=== PATIENT | male | born 1960 | race Caucasian/White ===

== ENCOUNTER 2017-09-10 06:48 | Inpatient (IN) | payer OTHER ==
[2017-09-10] MEDS ORDERED: Albuterol/Ipratropium 3.0-0.5 MG/3 ML Neb Soln NEB ONE (06:58)
[2017-09-10] MEDS: Sodium Chloride 0.9% 10 ML Syringe FLUSH PRN ×2 (07:17→09:20)
--- NOTE | 2017-09-10 07:46 | CR ---
Chest: 2 views of the chest were obtained. Moderately large left-sided pneumothorax is seen. Mediastinum appears slightly shifted to the right side and this pneumothorax may be causing mild tension. Right lung is clear. Heart size is normal. Tortuous thoracic aorta is seen. Impression: 1. Moderately large left sided pneumothorax with possible tension. Diagnostic code #5
[2017-09-10] MEDS ORDERED: Lidocaine 1% with EPINEPHrine 1:100,000 20 ML MDV INJECT ONE (07:52)
[2017-09-10] MEDS ORDERED: Midazolam 1 MG/ML 2 ML SDV IVPUSH ONE (07:54)
[2017-09-10] MEDS ORDERED: fentaNYL 100 MCG/2 ML SDV IVPUSH ONE ×2 (07:54→08:20)
[2017-09-10] MEDS ORDERED: Lidocaine 1% with EPINEPHrine 1:100,000 20 ML MDV ONE (07:59)
[2017-09-10] MEDS ORDERED: fentaNYL 100 MCG/2 ML SDV ONE (08:28)
[2017-09-10] MEDS ORDERED: Sodium Chloride 0.9% 1,000 ML IV SCH (08:30)
[2017-09-10] MEDS ORDERED: Iopamidol 755 Mg/ML 100 ML Bottle IVPUSH ONE (08:45)
[2017-09-10] MEDS ORDERED: Sodium Chloride 0.9% 100 ML IV SCH (08:45)
[2017-09-10] MEDS ORDERED: Sodium Chloride 0.9% 10 ML Syringe FLUSH ONE (08:45)
--- NOTE | 2017-09-10 08:56 | EDM.PDOC ---
ED HPI GENERAL MEDICAL PROBLEM - General Chief Complaint: Respiratory Problem Stated Complaint: [facility] Time Seen by Provider: 09/10/17 06:53 Source of Information: Reports: Patient, EMS History Limitations: Reports: No Limitations - History of Present Illness INITIAL COMMENTS - FREE TEXT/NARRATIVE: The patient presents with left chest pain. He also has pain to his left upper back. He said he got up this morning and he was doing fine. He went to get some coffee and he developed left sided chest pain. The pain is also to both lower ribs. He feels short of breath. He has no fever or chills. He has a slight cough. He has no abdominal pain, nausea or vomiting. He smoked a pack of cigarettes per day. He has no health problems that he knows of. He does admit to not regularly seeing a doctor. He did see a [employer] director intelligence officer that removed some skin cancer from his right ear. He came in by [facility]. Onset: Sudden Duration: Minutes: Location: Reports: Chest Quality: Reports: Sharp Severity: Moderate Improves with: Reports: None Worsens with: Reports: Breathing Context: Reports: Activity (He was getting some coffee this morning) Associated Symptoms: Reports: Chest Pain, Cough, Shortness of Breath. Denies: cough w sputum, Fever/Chills, Headaches, Nausea/Vomiting Left Shoulder Pain Score (Numeric/FACES): 3 - Related Data Allergies Allergy/AdvReac Type Severity Reaction Status Date / Time No Known Allergies Allergy Verified 09/10/17 06:56 Home Meds: Home Meds . [No Known Home Meds] 09/10/17 [History] Past Medical History Other HEENT History: Wears glasses Dermatologic History: Reports: Melanoma - Past Surgical History Dermatological Surgical History: Reports: Skin Biopsy Social & Family History - Tobacco Use Smoking Status *Q: Current Every Day Smoker Years of Tobacco use: 40 Packs/Tins Daily: 1 - Recreational Drug Use Recreational Drug Use: No ED ROS GENERAL - Review of Systems Review Of Systems: See Below Constitutional: Reports: No Symptoms HEENT: Reports: No Symptoms Respiratory: Reports: Shortness of Breath, Cough Cardiovascular: Reports: Chest Pain Endocrine: Reports: No Symptoms : Reports: No Symptoms Musculoskeletal: Reports: Back Pain Neurological: Reports: No Symptoms ED EXAM, GENERAL - Physical Exam Exam: See Below Exam Limited By: No Limitations General Appearance: Alert, No Apparent Distress Ears: Normal External Exam Nose: Normal Inspection Head: Atraumatic, Normocephalic Neck: Normal Inspection Respiratory/Chest: No Respiratory Distress, Decreased Breath Sounds (On the left ), Wheezing (very mild) Cardiovascular: Regular Rate, Rhythm, No Edema, No Murmur GI/Abdominal: Soft, Non-Tender, No Organomegaly, No Mass Back Exam: Normal Inspection Extremities: Normal Inspection ED RESPIRATORY PROCEDURES - Chest Tube Insertion Chest Tube Location: Left Site: Anterior Axillary Line, Intercostal Space: Tube Size: 20Fr Skin Prep: CDC Guidelines Followed, Chlorhexidine Local Anesthesia - Lidocaine (Xylocaine): 1% with EPI Local Anesthetic Volume: 4cc Butts of Air [place]: Yes Number of Attempts: 1 Tube Sutured to Skin: Yes Post procedure tube position confirmed by: by CXR Tube Connected to Suction: Yes EKG INTERPRETATION EKG Date: 09/10/17 Time: 06:47 Rhythm: NSR Rate (Beats/Min): 88 Violet: Normal P-Wave: Present QRS: Normal ST-T: Normal QT: Normal Course - Vital Signs Last Recorded V/S: Last Vital Signs Temp 97.3 F 09/10/17 06:56 Pulse 91 09/10/17 06:56 Resp 18 09/10/17 06:56 BP 115/83 09/10/17 06:56 Pulse Ox 93 L 09/10/17 07:11 - Orders/Labs/Meds Orders: Active Orders 24 hr Category Date Time Status Cardiac Monitoring [RC] . DIRECTED Care 09/10/17 06:57 Active EKG Documentation Completion [RC] STAT Care 09/10/17 06:57 Active Oxygen Therapy [RC] PRN Care 09/10/17 06:57 Active Peripheral IV Care [RC] . DIRECTED Care 09/10/17 06:58 Active RT Aerosol Therapy [RC] ASDIRECTED Care 09/10/17 06:58 Active Sodium Chloride 0.9% [Normal Saline] 1,000 ml Med 09/10/17 08:30 Active IV ASDIRECTED Sodium Chloride 0.9% [Normal Saline] 100 ml Med 09/10/17 08:45 Active IV ASDIRECTED Sodium Chloride 0.9% [Saline Flush] Med 09/10/17 06:57 Active 10 ml FLUSH ASDIRECTED PRN Peripheral IV Insertion Adult [OM.PC] Stat Oth 09/10/17 06:57 Ordered Medication Orders Sodium Chloride (Normal Saline) 1,000 mls @ 150 mls/hr IV ASDIRECTED CALLUM Last Admin: 09/10/17 08:42 Dose: 150 mls/hr Sodium Chloride (Normal Saline) 100 mls @ 60 mls/hr IV ASDIRECTED CALLUM Last Admin: 09/10/17 09:20 Dose: 60 mls/hr Sodium Chloride (Saline Flush) 10 ml FLUSH ASDIRECTED PRN PRN Reason: Keep Vein Open Last Admin: 09/10/17 09:20 Dose: 10 ml Admin: 09/10/17 07:17 Dose: 10 ml Labs: Laboratory Tests 09/10/17 09/10/17 09/10/17 Range/Units 07:10 07:10 07:10 WBC 9.33 H (4.23-9.07) K/mm3 RBC 4.97 (4.63-6.08) M/mm3 Hgb 15.4 (13.7-17.5) gm/L Hct 45.5 (40.1-51.0) % MCV 91.5 (79.0-92.2) fl MCH 31.0 (25.7-32.2) pg MCHC 33.8 (32.2-35.5) g/dl RDW Std Deviation 45.1 H (35.1-43.9) fL Plt Count 197 (163-337) K/mm3 MPV 9.4 (9.4-12.3) fl Neut % (Auto) 82.7 H (34.0-67.9) % Lymph % (Auto) 9.5 L (21.8-53.1) % Christian % (Auto) 6.2 (5.3-12.2) % Eos % (Auto) 1.0 (0.8-7.0) Baso % (Auto) 0.3 (0.1-1.2) % Neut # (Auto) 7.71 H (1.78-5.38) K/mm3 Lymph # (Auto) 0.89 L (1.32-3.57) K/mm3 Christian # (Auto) 0.58 (0.30-0.82) K/mm3 Eos # (Auto) 0.09 (0.04-0.54) K/mm3 Baso # (Auto) 0.03 (0.01-0.08) K/mm3 Manual Slide Review Normal smear D-Dimer, Quantitative 0.99 H (0.19-0.59) mg/L Sodium 142 (136-145) mEq/L Potassium 4.2 (3.5-5.1) mEq/L Chloride 108 H (98-107) mEq/L Carbon Dioxide 26 (21-32) mEq/L Anion Gap 12.2 (5-15) BUN 23 H (7-18) mg/dL Creatinine 1.4 H (0.7-1.3) mg/dL Est Cr Clr Drug Dosing 61.56 mL/min Estimated GFR (MDRD) 53 (>60) mL/min BUN/Creatinine Ratio 16.4 (14-18) Glucose 92 (74-106) mg/dL Calcium 9.3 (8.5-10.1) mg/dL Total Bilirubin 0.4 (0.2-1.0) mg/dL AST 16 (15-37) U/L ALT 22 (16-63) U/L Alkaline Phosphatase 47 (46-116) U/L Troponin I < 0.017 (0.00-0.056) ng/mL Total Protein 6.9 (6.4-8.2) g/dl Albumin 3.6 (3.4-5.0) g/dl Globulin 3.3 gm/dL Albumin/Globulin Ratio 1.1 (1-2) Meds: Medications Generic Name Dose Route Start Last Admin Trade Name Freq PRN Reason Stop Dose Admin Sodium Chloride 1,000 mls @ 150 mls/hr 09/10/17 08:30 09/10/17 08:42 Normal Saline IV 150 mls/hr ASDIRECTED CALLUM Administration Sodium Chloride 100 mls @ 60 mls/hr 09/10/17 08:45 09/10/17 09:20 Normal Saline IV 60 mls/hr ASDIRECTED CALLUM Administration Sodium Chloride 10 ml 09/10/17 06:57 09/10/17 09:20 Saline Flush FLUSH 10 ml ASDIRECTED PRN Administration Keep Vein Open Discontinued Medications Generic Name Dose Route Start Last Admin Trade Name Freq PRN Reason Stop Dose Admin Albuterol/Ipratropium 3 ml 09/10/17 06:58 09/10/17 07:11 Duoneb 3.0-0.5 Mg/3 Ml NEB 09/10/17 06:59 3 ml ONETIME ONE Administration Diazepam 5 mg 09/10/17 08:25 09/10/17 08:43 Valium IVPUSH 09/10/17 08:26 5 mg ONETIME ONE Administration Fentanyl 100 mcg 09/10/17 07:54 09/10/17 08:01 Sublimaze IVPUSH 09/10/17 07:55 100 mcg ONETIME ONE Administration Fentanyl 100 mcg 09/10/17 08:20 09/10/17 08:24 Sublimaze IVPUSH 09/10/17 08:21 100 mcg ONETIME ONE Administration Fentanyl Confirm 09/10/17 08:28 09/10/17 08:46 Sublimaze Administered 09/10/17 08:29 Not Given Dose 100 mcg .ROUTE .STK-MED ONE Hydromorphone HCl Confirm 09/10/17 09:18 09/10/17 09:36 Dilaudid Administered 09/10/17 09:19 Not Given Dose 1 mg .ROUTE .STK-MED ONE Hydromorphone HCl 1 mg 09/10/17 09:26 09/10/17 09:15 Dilaudid IVPUSH 09/10/17 09:27 0.5 mg ONETIME ONE Administration Iopamidol 100 ml 09/10/17 08:45 09/10/17 09:20 Isovue-370 (76%) IVPUSH 09/10/17 08:46 80 ml ONETIME ONE Administration Lidocaine/Epinephrine 20 ml 09/10/17 07:52 09/10/17 08:13 Xylocaine 1% With Epinephrine 1:100,000 INJECT 09/10/17 07:53 20 ml ONETIME ONE Administration Lidocaine/Epinephrine Confirm 09/10/17 07:59 09/10/17 08:13 Xylocaine 1% With Epinephrine 1:100,000 Administered 09/10/17 08:00 Not Given Dose 20 ml .ROUTE .STK-MED ONE Midazolam HCl 2 mg 09/10/17 07:54 09/10/17 08:00 Versed 1 Mg/Ml IVPUSH 09/10/17 07:55 2 mg ONETIME ONE Administration Sodium Chloride 10 ml 09/10/17 08:45 09/10/17 09:34 Saline Flush FLUSH 09/10/17 08:46 10 ml ONETIME ONE Administration - Re-Assessments/Exams Free Text/Narrative Re-Assessment/Exam: 09/10/17 09:01 I ordered an IV saline lock, EKG, CXR and labs. The patient did not want any aspirin. His aoc director intelligence officer did not want him to take any. His WBC was elevated at 9.33. His D-dimer is elevated at 0.99. His BUN is elevated at 23. His creatinine is elevated at 1.4. His troponin is negative. His CXR shows moderately large left sided pneumothorax with possible tension. 09/10/17 09:05 I ordered fentanyl 100mcg IV and versed 2mg. I used lidocaine with epi to anaesthetize the site. I put in a 20 Welsh tube without difficulty. Tube positioning was confirmed with CXR. He had severe pain to the upper left chest and to his back after his chest tube. I gave him some more fentanyl 100mcg IV and some valium. The tube was up in the apex so I back it off slightly. That may have helped some. I have ordered a CT of his chest. His D-dimer was elevated. I talked to Dr Samyaoa and he accepted the patient. His oxygen saturations were low. I feel this is due to his not taking a deep breath and poor pleth. We will continue with the oxygen. 09/10/17 10:[address] shows prominent emphysematous bullae within both lungs, worse on the left side. Small left-sided pneumothrax is seen. Left-sided chest tube is in place. Focal density within the left lung base most likely representing atelectasis with pneumonia also possibility but slightly less likely please correlate. The patient does have a cough but no more then usual. I up-dated Dr Samayoa and I will do some bridging orders. 09/10/17 10:16 The patient is feeling much better. Departure - Departure Time of Disposition: 10:20 Disposition: Admitted As Inpatient 67 Condition: Fair Clinical Impression: Pneumothorax on left, Bleb, lung, Smoker Emphysema lung Qualifiers: Emphysema type: unspecified Qualified Code(s): J43.9 - Emphysema, unspecified - Discharge Information Referrals: PCP,None [Primary Care Provider] - Forms: ED Department Discharge - My Orders Last 24 Hours: My Active Orders 09/10/17 06:57 Cardiac Monitoring [RC] . DIRECTED EKG Documentation Completion [RC] STAT Oxygen Therapy [RC] PRN Sodium Chloride 0.9% [Saline Flush] 10 ml FLUSH ASDIRECTED PRN Peripheral IV Insertion Adult [OM.PC] Stat 09/10/17 06:58 Peripheral IV Care [RC] . DIRECTED RT Aerosol Therapy [RC] ASDIRECTED 09/10/17 08:30 Sodium Chloride 0.9% [Normal Saline] 1,000 ml IV ASDIRECTED 09/10/17 08:45 Sodium Chloride 0.9% [Normal Saline] 100 ml IV ASDIRECTED - Assessment/Plan Last 24 Hours: My Active Orders 09/10/17 06:57 Cardiac Monitoring [RC] . DIRECTED EKG Documentation Completion [RC] STAT Oxygen Therapy [RC] PRN Sodium Chloride 0.9% [Saline Flush] 10 ml FLUSH ASDIRECTED PRN Peripheral IV Insertion Adult [OM.PC] Stat 09/10/17 06:58 Peripheral IV Care [RC] . DIRECTED RT Aerosol Therapy [RC] ASDIRECTED 09/10/17 08:30 Sodium Chloride 0.9% [Normal Saline] 1,000 ml IV ASDIRECTED 09/10/17 08:45 Sodium Chloride 0.9% [Normal Saline] 100 ml IV ASDIRECTED
[2017-09-10] MEDS ORDERED: HYDROmorphone 1 MG/ML Syringe ONE (09:18)
[2017-09-10] MEDS ORDERED: HYDROmorphone 1 MG/ML Syringe IVPUSH ONE (09:26)
--- NOTE | 2017-09-10 09:40 | CR ---
Chest: Portable view of the chest was obtained. Comparison: Prior chest x-ray performed earlier on the same day (7:10 AM). Left-sided chest tube is now seen. Previous pneumothorax has been evacuated. Small amount of air is noted within the left chest wall secondary to the procedure. Parenchymal density is noted within the left lung base. Lungs otherwise are clear. Heart size at the upper limits of normal. Bony structures are grossly intact. Impression: 1. Left-sided chest tube. Previous pneumothorax has been evacuated. 2. Parenchymal density within the left base either due to prominent area of persisting atelectasis or an area of pneumonia. 3. Other incidental findings. Diagnostic code #3
--- NOTE | 2017-09-10 09:40 | CR ---
Chest: Portable view of the chest was obtained. Comparison: Prior chest x-ray performed earlier on the same day (8:15 AM). Left-sided chest tube is seen with small pneumothorax seen on current study. Small amount of air is seen within the left chest wall which is incidental. Decreasing parenchymal density within the left base now having the appearance of resolving atelectasis rather than pneumonia. Lungs otherwise are clear. Heart size at the upper limits of normal. Tortuous thoracic aorta is seen. Bony structures are grossly intact. Impression: 1. Stable appearing left-sided chest tube. Small pneumothorax is seen on current study. 2. Decreased area of atelectasis within the left base. Other incidental findings. Diagnostic code #3
--- NOTE | 2017-09-10 10:05 | CT ---
CT chest Technique: Multiple axial sections were obtained from above the lung apices inferiorly through the lung bases. Intravenous contrast was utilized. Study has been performed as a pulmonary angiogram protocol. Findings: Pulmonary arteries are well-opacified. No filling defects are seen to indicate pulmonary embolism. Moderate sized hiatal hernia is noted. Coronary artery calcification is noted. Atherosclerotic calcification is noted within the thoracic aorta. Mediastinum and hilar regions show no adenopathy or mass. Bullous change is identified within both lungs, worse on the left side. Emphysematous change is present. Small persisting pneumothorax is seen on the left side with left-sided chest tube in place. Increased density within the left lung base is seen. Findings most likely due to atelectasis with less likely etiology of pneumonia. Slight atelectasis seen posteriorly within the right lung base. Subcutaneous air within the left chest compatible with recent chest tube placement. Impression: 1. Prominent emphysematous bullae within both lungs, worse on the left side. 2. Small left-sided pneumothorax is seen. Left-sided chest tube is in place. 3. Focal density within the left lung base most likely representing atelectasis with pneumonia also possibility but slightly less likely, please correlate. 4. Other incidental findings as noted above. No findings of pulmonary embolism are seen. Diagnostic code #3
[2017-09-10] MEDS ORDERED: HYDROmorphone 0.5 MG/0.5 ML Syringe IVPUSH ONE (10:52)
[2017-09-10] MEDS: HYDROmorphone 0.5 MG/0.5 ML Syringe IVPUSH PRN ×5 (12:33→22:09)
[2017-09-10] MEDS: Pantoprazole 40 MG Tab.CR PO SCH (14:41)
--- NOTE | 2017-09-10 14:59 | PCM.HP ---
H&P History of Present Illness - General Date of Service: 09/10/17 Admit Problem/Dx: Admission Diagnosis/Problem Admission Diagnosis/Problem Pneumothorax on left Source of Information: Patient - History of Present Illness Initial Comments - Free Text/Narative: 56-year-old 1 pack per day smoker was in his usual state of health until this morning when he experienced the sudden onset of left-sided chest pain associated with shortness of breath and a cough. The pain was worse with deep inspiration. Because of this he presented to the emergency room for evaluation. He was hemodynamically stable but had low O2 saturations. His chest x-ray showed a complete collapse of the left lung with slight mediastinal shift along with emphysematous changes in both lungs. A chest tube was placed by the ED physician. A CT scan showed emphysematous bulla and some atelectatic changes. The patient had post procedure chest tube discomfort and after repositioning of the tube this helped with the discomfort. Left Shoulder Pain Score (Numeric/FACES): 3 - Related Data Allergies/Adverse Reactions: Allergies Allergy/AdvReac Type Severity Reaction Status Date / Time No Known Allergies Allergy Verified 09/10/17 06:56 Home Medications: Home Meds . [No Known Home Meds] 09/10/17 [History] Past Medical History Other HEENT History: Wears glasses Dermatologic History: Reports: Melanoma - Past Surgical History Dermatological Surgical History: Reports: Skin Biopsy Social & Family History - Tobacco Use Smoking Status *Q: Current Every Day Smoker Years of Tobacco use: 40 Packs/Tins Daily: 1 - Recreational Drug Use Recreational Drug Use: No H&P Review of Systems - Review of Systems: Review Of Systems: ROS reveals no pertinent complaints other than HPI. Exam - Exam Exam: See Below - Vital Signs Vital Signs: Last Vital Signs Temp 36.4 C 09/10/17 11:36 Pulse 84 09/10/17 11:36 Resp 16 09/10/17 11:36 BP 132/74 09/10/17 11:36 Pulse Ox 92 L 09/10/17 11:36 Weight: 83.915 kg - Exam Quality Assessment: Supplemental Oxygen General: Alert, Oriented, Cooperative, Mild Distress HEENT: EOMI, Hearing Intact Neck: Supple, Trachea Midline Lungs: Clear to Auscultation, Decreased Breath Sounds (Left chest) Cardiovascular: Regular Rate, Regular Rhythm, Normal S1, Normal S2 GI/Abdominal Exam: Normal Bowel Sounds, Soft, Non-Tender (Male) Exam: Deferred Rectal (Males) Exam: Deferred Skin: Warm, Dry, Intact - Patient Data Result Diagrams: 09/10/17 07:10 09/10/17 07:10 *Q Meaningful Use (ADM) - VTE *Q VTE Criteria *Q: - Stroke *Q Stroke Criteria *Q: - AMI *Q AMI Criteria *Q: - Problem List (1) Emphysema lung SNOMED Code(s): 48570602 ICD Code: J43.9 - EMPHYSEMA, UNSPECIFIED Status: Chronic Priority: Medium Current Visit: Yes Qualifiers: Emphysema type: unspecified Qualified Code(s): J43.9 - Emphysema, unspecified (2) Pneumothorax on left SNOMED Code(s): 128689016 ICD Code: J93.9 - PNEUMOTHORAX, UNSPECIFIED Status: Resolved Priority: High Current Visit: Yes Problem List Initiated/Reviewed/Updated: Yes Orders Last 24hrs: Active Orders 24 hr Category Date Time Status Bedrest [RC] ASDIRECTED Care 09/10/17 12:05 Active Regular Diet [DIET] Diet 09/10/17 Lunch Active HYDROmorphone [Dilaudid] Med 09/10/17 12:03 Active 0.5 mg IVPUSH Q1H PRN Pantoprazole [ProTONIX] Med 09/10/17 13:45 Active 40 mg PO ACBREAKFAST Resuscitation Status Routine Resus Stat 09/10/17 12:05 Ordered Medication Orders Hydromorphone HCl (Dilaudid) 0.5 mg IVPUSH Q1H PRN PRN Reason: Pain Last Admin: 09/10/17 14:38 Dose: 0.5 mg Admin: 09/10/17 12:33 Dose: 0.5 mg Pantoprazole Sodium (Protonix) 40 mg PO ACBREAKFAST CALLUM Last Admin: 09/10/17 14:41 Dose: 40 mg Sodium Chloride (Saline Flush) 10 ml FLUSH ASDIRECTED PRN PRN Reason: Keep Vein Open Last Admin: 09/10/17 09:20 Dose: 10 ml Admin: 09/10/17 07:17 Dose: 10 ml Assessment/Plan Comment:: imp/plan: Near complete lung reexpansion after placement of a left chest tube. 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 Hopefully this seals itself within the next few days. He' s currently on 20 cm of continuous water suction. He has some pain at the chest tube site. I will continue the suction and periodically obtain chest x-rays. I will switch his analgesics to nonsteroidals. Nicotine patch will be available when necessary.
[2017-09-10] MEDS ORDERED: Nicotine 21 MG/24 Hr Patch TRDERM PRN (15:09)
[2017-09-10] MEDS: Ibuprofen 400 MG Tab PO SCH ×2 (16:17→22:16)
[2017-09-10] MEDS: Ketorolac 15 MG/ML SDV IVPUSH PRN (22:08)
[2017-09-11] MEDS: Ketorolac 15 MG/ML SDV IVPUSH PRN ×2 (04:35→21:23)
[2017-09-11] MEDS: HYDROmorphone 0.5 MG/0.5 ML Syringe IVPUSH PRN ×4 (04:36→21:19)
[2017-09-11] MEDS: Pantoprazole 40 MG Tab.CR PO SCH (06:59)
[2017-09-11] MEDS: Ibuprofen 400 MG Tab PO SCH ×3 (06:59→22:58)
--- NOTE | 2017-09-11 08:52 | PCM.PN ---
- General Info Date of Service: 09/11/17 Functional Status: Reports: Pain Controlled, Tolerating Diet, Ambulating, Urinating - Review of Systems Pulmonary: Reports: Other (Complains of pain at the chest tube entry site and sometimes he has pain with coughing.) - Patient Data Vitals - Most Recent: Last Vital Signs Temp 36.9 C 09/11/17 07:50 Pulse 58 L 09/11/17 07:50 Resp 12 09/11/17 07:50 BP 131/85 09/11/17 07:50 Pulse Ox 93 L 09/11/17 07:50 Weight - Most Recent: 83.915 kg I&O - Last 24 Hours: Intake & Output 09/10/17 09/11/17 09/11/17 22:59 06:59 14:59 Intake Total 1760 800 Output Total 0 676 Balance 1760 124 Med Orders - Current: Current Medications Hydromorphone HCl (Dilaudid) 0.5 mg IVPUSH Q1H PRN PRN Reason: Pain Last Admin: 09/11/17 04:36 Dose: 0.5 mg Ibuprofen (Motrin) 400 mg PO Q8H [facility] Last Admin: 09/11/17 06:59 Dose: 400 mg Ketorolac Tromethamine (Toradol) 15 mg IVPUSH Q6H PRN PRN Reason: Pain Last Admin: 09/11/17 04:35 Dose: 15 mg Miscellaneous Information (Remove Patch) 0 ea TRDERM DAILY [facility] Nicotine (Habitrol) 21 mg TRDERM ONETIME PRN PRN Reason: Withdrawal Symptoms Pantoprazole Sodium (Protonix) 40 mg PO ACBREAKFAST [facility] Last Admin: 09/11/17 06:59 Dose: 40 mg Sodium Chloride (Saline Flush) 10 ml FLUSH ASDIRECTED PRN PRN Reason: Keep Vein Open Last Admin: 09/10/17 09:20 Dose: 10 ml Discontinued Medications Albuterol/Ipratropium (Duoneb 3.0-0.5 Mg/3 Ml) 3 ml NEB ONETIME ONE Stop: 09/10/17 06:59 Last Admin: 09/10/17 07:11 Dose: 3 ml Diazepam (Valium) 5 mg IVPUSH ONETIME ONE Stop: 09/10/17 08:26 Last Admin: 01/30/18 08:43 Dose: 5 mg Fentanyl (Sublimaze) 100 mcg IVPUSH ONETIME ONE Stop: 09/10/17 07:55 Last Admin: 09/10/17 08:01 Dose: 100 mcg Fentanyl (Sublimaze) 100 mcg IVPUSH ONETIME ONE Stop: 09/10/17 08:21 Last Admin: 09/10/17 08:24 Dose: 100 mcg Fentanyl (Sublimaze) Confirm Administered Dose 100 mcg .ROUTE .STK-MED ONE Stop: 09/10/17 08:29 Last Admin: 09/10/17 08:46 Dose: Not Given Hydromorphone HCl (Dilaudid) Confirm Administered Dose 1 mg .ROUTE .STK-MED ONE Stop: 09/10/17 09:19 Last Admin: 09/10/17 09:36 Dose: Not Given Hydromorphone HCl (Dilaudid) 1 mg IVPUSH ONETIME ONE Stop: 09/10/17 09:27 Last Admin: 09/10/17 09:15 Dose: 0.5 mg Hydromorphone HCl (Dilaudid) 0.5 mg IVPUSH ONETIME ONE Stop: 09/10/17 10:53 Last Admin: 09/10/17 11:00 Dose: 0.5 mg Sodium Chloride (Normal Saline) 1,000 mls @ 150 mls/hr IV ASDIRECTED [facility] Last Admin: 09/10/17 08:42 Dose: 150 mls/hr Sodium Chloride (Normal Saline) 100 mls @ 60 mls/hr IV ASDIRECTED [facility] Last Admin: 09/10/17 09:20 Dose: 60 mls/hr Iopamidol (Isovue-370 (76%)) 100 ml IVPUSH ONETIME ONE Stop: 09/10/17 08:46 Last Admin: 09/10/17 09:20 Dose: 80 ml Lidocaine/Epinephrine (Xylocaine 1% With Epinephrine 1:100,000) 20 ml INJECT ONETIME ONE Stop: 09/10/17 07:53 Last Admin: 09/10/17 08:13 Dose: 20 ml Lidocaine/Epinephrine (Xylocaine 1% With Epinephrine 1:100,000) Confirm Administered Dose 20 ml .ROUTE .STK-MED ONE Stop: 09/10/17 08:00 Last Admin: 09/10/17 08:13 Dose: Not Given Midazolam HCl (Versed 1 Mg/Ml) 2 mg IVPUSH ONETIME ONE Stop: 09/10/17 07:55 Last Admin: 09/10/17 08:00 Dose: 2 mg Sodium Chloride (Saline Flush) 10 ml FLUSH ONETIME ONE Stop: 09/10/17 08:46 Last Admin: 09/10/17 09:34 Dose: 10 ml - Exam General: Alert, Oriented - Problem List & Annotations (1) Emphysema lung SNOMED Code(s): 36877830 Code(s): J43.9 - EMPHYSEMA, UNSPECIFIED Status: Chronic Priority: Medium Current Visit: Yes Qualifiers: Emphysema type: unspecified Qualified Code(s): J43.9 - Emphysema, unspecified (2) Pneumothorax on left SNOMED Code(s): 091483394 Code(s): J93.9 - PNEUMOTHORAX, UNSPECIFIED Status: Resolved Priority: High Current Visit: Yes - Problem List Review Problem List Initiated/Reviewed/Updated: Yes - My Orders Last 24 Hours: My Active Orders 09/10/17 11:30 Vital Signs [RC] Q4HR 09/10/17 12:03 HYDROmorphone [Dilaudid] 0.5 mg IVPUSH Q1H PRN 09/10/17 12:05 Bedrest [RC] BID Resuscitation Status Routine 09/10/17 13:45 Pantoprazole [ProTONIX] 40 mg PO ACBREAKFAST 09/10/17 15:07 Ketorolac [Toradol] 15 mg IVPUSH Q6H PRN 09/10/17 15:09 Nicotine [Habitrol] 21 mg TRDERM ONETIME PRN Pulse Oximetry Continuous Monitoring [OM.PC] Routine 09/10/17 15:15 Ibuprofen [Motrin] 400 mg PO Q8H 09/10/17 Lunch Regular Diet [DIET] 09/11/17 07:42 Antiembolic Devices [RC] PER UNIT ROUTINE BRITTANY Hose [Antiembolic Hose] [OM.PC] Routine 09/11/17 09:00 Remove Patch 0 ea TRDERM DAILY - Assessment Assessment:: Stable. Pain has lessened after receiving adequate analgesics. 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 Hopefully this improved over the next several days. - Plan Plan:: Same.
[2017-09-12] MEDS: Ketorolac 15 MG/ML SDV IVPUSH PRN (03:29)
[2017-09-12] MEDS: HYDROmorphone 0.5 MG/0.5 ML Syringe IVPUSH PRN (03:34)
[2017-09-12] MEDS: Pantoprazole 40 MG Tab.CR PO SCH (06:57)
[2017-09-12] MEDS: Ibuprofen 400 MG Tab PO SCH ×3 (06:57→22:19)
--- NOTE | 2017-09-12 07:57 | PCM.PN ---
- General Info Date of Service: 09/12/17 Functional Status: Reports: Pain Controlled, Tolerating Diet, Ambulating, Urinating - Patient Data Vitals - Most Recent: Last Vital Signs Temp 36.4 C 09/12/17 03:12 Pulse 68 09/12/17 03:12 Resp 18 09/12/17 03:12 BP 125/85 09/12/17 03:12 Pulse Ox 92 L 09/12/17 03:12 Weight - Most Recent: 86.409 kg I&O - Last 24 Hours: Intake & Output 09/11/17 09/12/17 09/12/17 22:59 06:59 14:59 Intake Total 530 1500 Output Total 59 2379 Balance 471 -879 Med Orders - Current: Current Medications Hydromorphone HCl (Dilaudid) 0.5 mg IVPUSH Q1H PRN PRN Reason: Pain Last Admin: 09/12/17 03:34 Dose: 0.5 mg Ibuprofen (Motrin) 400 mg PO Q8H [facility] Last Admin: 09/12/17 06:57 Dose: 400 mg Influenza Virus Vaccine (Flulaval Quad [id number]) 60 mcg IM .ONCE ONE Stop: 09/13/17 09:01 Ketorolac Tromethamine (Toradol) 15 mg IVPUSH Q6H PRN PRN Reason: Pain Last Admin: 09/12/17 03:29 Dose: 15 mg Miscellaneous Information (Remove Patch) 0 ea TRDERM DAILY [facility] Last Admin: 09/11/17 10:16 Dose: Not Given Nicotine (Habitrol) 21 mg TRDERM ONETIME PRN PRN Reason: Withdrawal Symptoms Pantoprazole Sodium (Protonix) 40 mg PO ACBREAKFAST [facility] Last Admin: 09/12/17 06:57 Dose: 40 mg Pneumococcal 13-Valent Conj Vacc (Prevnar 13) 0.5 ml IM .ONCE ONE Stop: 09/13/17 09:01 Sodium Chloride (Saline Flush) 10 ml FLUSH ASDIRECTED PRN PRN Reason: Keep Vein Open Last Admin: 09/10/17 09:20 Dose: 10 ml Discontinued Medications Albuterol/Ipratropium (Duoneb 3.0-0.5 Mg/3 Ml) 3 ml NEB ONETIME ONE Stop: 09/10/17 06:59 Last Admin: 09/10/17 07:11 Dose: 3 ml Diazepam (Valium) 5 mg IVPUSH ONETIME ONE Stop: 09/10/17 08:26 Last Admin: 09/10/17 08:43 Dose: 5 mg Fentanyl (Sublimaze) 100 mcg IVPUSH ONETIME ONE Stop: 09/10/17 07:55 Last Admin: 09/10/17 08:01 Dose: 100 mcg Fentanyl (Sublimaze) 100 mcg IVPUSH ONETIME ONE Stop: 09/10/17 08:21 Last Admin: 09/10/17 08:24 Dose: 100 mcg Fentanyl (Sublimaze) Confirm Administered Dose 100 mcg .ROUTE .STK-MED ONE Stop: 09/10/17 08:29 Last Admin: 09/10/17 08:46 Dose: Not Given Hydromorphone HCl (Dilaudid) Confirm Administered Dose 1 mg .ROUTE .STK-MED ONE Stop: 09/10/17 09:19 Last Admin: 09/10/17 09:36 Dose: Not Given Hydromorphone HCl (Dilaudid) 1 mg IVPUSH ONETIME ONE Stop: 09/10/17 09:27 Last Admin: 09/10/17 09:15 Dose: 0.5 mg Hydromorphone HCl (Dilaudid) 0.5 mg IVPUSH ONETIME ONE Stop: 09/10/17 10:53 Last Admin: 09/10/17 11:00 Dose: 0.5 mg Sodium Chloride (Normal Saline) 1,000 mls @ 150 mls/hr IV ASDIRECTED [facility] Last Admin: 09/10/17 08:42 Dose: 150 mls/hr Sodium Chloride (Normal Saline) 100 mls @ 60 mls/hr IV ASDIRECTED [facility] Last Admin: 09/10/17 09:20 Dose: 60 mls/hr Iopamidol (Isovue-370 (76%)) 100 ml IVPUSH ONETIME ONE Stop: 09/10/17 08:46 Last Admin: 09/10/17 09:20 Dose: 80 ml Lidocaine/Epinephrine (Xylocaine 1% With Epinephrine 1:100,000) 20 ml INJECT ONETIME ONE Stop: 09/10/17 07:53 Last Admin: 09/10/17 08:13 Dose: 20 ml Lidocaine/Epinephrine (Xylocaine 1% With Epinephrine 1:100,000) Confirm Administered Dose 20 ml .ROUTE .STK-MED ONE Stop: 09/10/17 08:00 Last Admin: 09/10/17 08:13 Dose: Not Given Midazolam HCl (Versed 1 Mg/Ml) 2 mg IVPUSH ONETIME ONE Stop: 09/10/17 07:55 Last Admin: 09/10/17 08:00 Dose: 2 mg Sodium Chloride (Saline Flush) 10 ml FLUSH ONETIME ONE Stop: 09/10/17 08:46 Last Admin: 09/10/17 09:34 Dose: 10 ml - Exam General: Alert, Oriented, Cooperative, No Acute Distress, Other (Dressings clean dry and intact) Wound/Incisions: Dressing Dry and Intact, Other (Airleak has slowed slightly) - Problem List & Annotations (1) Emphysema lung SNOMED Code(s): 94553731 Code(s): J43.9 - EMPHYSEMA, UNSPECIFIED Status: Chronic Priority: Medium Current Visit: Yes Qualifiers: Emphysema type: unspecified Qualified Code(s): J43.9 - Emphysema, unspecified (2) Pneumothorax on left SNOMED Code(s): 038547982 Code(s): J93.9 - PNEUMOTHORAX, UNSPECIFIED Status: Resolved Priority: High Current Visit: Yes - Problem List Review Problem List Initiated/Reviewed/Updated: Yes - My Orders Last 24 Hours: My Active Orders 09/11/17 07:42 Antiembolic Devices [RC] BID BRITTANY Hose [Antiembolic Hose] [OM.PC] Routine 09/11/17 09:00 Remove Patch 0 ea TRDERM DAILY 09/13/17 09:00 FLU Vacc [id number](6MOS UP)/PF [Flulaval Quad [id number]] 60 mcg IM .ONCE ONE Pneumococcal 13-Valent Conjug [Prevnar 13] 0.5 ml IM .ONCE ONE - Assessment Assessment:: Stable. Airleak has slowed slightly. - Plan Plan:: Dressing change today.
[2017-09-12] MEDS ORDERED: Non-Formulary Medication 1 Each (Omeprazole 20 MG) PO SCH (09:00)
[2017-09-12] MEDS: Acetaminophen/HYDROcodone 325-5 MG Tab PO PRN ×2 (10:09→20:41)
[2017-09-13] MEDS: Pantoprazole 40 MG Tab.CR PO SCH (05:22)
[2017-09-13] MEDS: Acetaminophen/HYDROcodone 325-5 MG Tab PO PRN ×2 (05:23→11:30)
[2017-09-13] MEDS: Ibuprofen 400 MG Tab PO SCH ×3 (06:16→22:34)
--- NOTE | 2017-09-13 08:40 | PCM.PN ---
- General Info Date of Service: 09/13/17 Functional Status: Reports: Pain Controlled, Tolerating Diet, Ambulating, Urinating - Patient Data Vitals - Most Recent: Last Vital Signs Temp 36.7 C 09/12/17 19:47 Pulse 59 L 09/12/17 19:47 Resp 22 H 09/12/17 19:47 BP 149/79 H 09/13/17 00:33 Pulse Ox 94 L 09/12/17 19:47 Weight - Most Recent: 87.725 kg I&O - Last 24 Hours: Intake & Output 09/12/17 09/13/17 09/13/17 22:59 06:59 14:59 Intake Total 530 800 Output Total 900 650 14 Balance -370 150 -14 Med Orders - Current: Current Medications Hydrocodone Bitart/Acetaminophen (Rulo 325-5 Mg) 1 tab PO Q4H PRN PRN Reason: Pain Last Admin: 09/13/17 05:23 Dose: 1 tab Hydromorphone HCl (Dilaudid) 0.5 mg IVPUSH Q1H PRN PRN Reason: Pain Last Admin: 09/12/17 03:34 Dose: 0.5 mg Ibuprofen (Motrin) 400 mg PO Q8H [facility] Last Admin: 09/13/17 06:16 Dose: 400 mg Influenza Virus Vaccine (Flulaval Quad 7875-0962) 60 mcg IM .ONCE ONE Stop: 09/13/17 09:01 Ketorolac Tromethamine (Toradol) 15 mg IVPUSH Q6H PRN PRN Reason: Pain Last Admin: 09/12/17 03:29 Dose: 15 mg Miscellaneous Information (Remove Patch) 0 ea TRDERM DAILY [facility] Last Admin: 09/12/17 09:00 Dose: Not Given Nicotine (Habitrol) 21 mg TRDERM ONETIME PRN PRN Reason: Withdrawal Symptoms Pantoprazole Sodium (Protonix) 40 mg PO ACBREAKFAST [facility] Last Admin: 09/13/17 05:22 Dose: 40 mg Pneumococcal 13-Valent Conj Vacc (Prevnar 13) 0.5 ml IM .ONCE ONE Stop: 09/13/17 09:01 Sodium Chloride (Saline Flush) 10 ml FLUSH ASDIRECTED PRN PRN Reason: Keep Vein Open Last Admin: 09/10/17 09:20 Dose: 10 ml Discontinued Medications Albuterol/Ipratropium (Duoneb 3.0-0.5 Mg/3 Ml) 3 ml NEB ONETIME ONE Stop: 09/10/17 06:59 Last Admin: 09/10/17 07:11 Dose: 3 ml Diazepam (Valium) 5 mg IVPUSH ONETIME ONE Stop: 09/10/17 08:26 Last Admin: 09/10/17 08:43 Dose: 5 mg Fentanyl (Sublimaze) 100 mcg IVPUSH ONETIME ONE Stop: 09/10/17 07:55 Last Admin: 09/10/17 08:01 Dose: 100 mcg Fentanyl (Sublimaze) 100 mcg IVPUSH ONETIME ONE Stop: 09/10/17 08:21 Last Admin: 09/10/17 08:24 Dose: 100 mcg Fentanyl (Sublimaze) Confirm Administered Dose 100 mcg .ROUTE .STK-MED ONE Stop: 09/10/17 08:29 Last Admin: 09/10/17 08:46 Dose: Not Given Hydromorphone HCl (Dilaudid) Confirm Administered Dose 1 mg .ROUTE .STK-MED ONE Stop: 09/10/17 09:19 Last Admin: 09/10/17 09:36 Dose: Not Given Hydromorphone HCl (Dilaudid) 1 mg IVPUSH ONETIME ONE Stop: 09/10/17 09:27 Last Admin: 09/10/17 09:15 Dose: 0.5 mg Hydromorphone HCl (Dilaudid) 0.5 mg IVPUSH ONETIME ONE Stop: 09/10/17 10:53 Last Admin: 09/10/17 11:00 Dose: 0.5 mg Sodium Chloride (Normal Saline) 1,000 mls @ 150 mls/hr IV ASDIRECTED [facility] Last Admin: 09/10/17 08:42 Dose: 150 mls/hr Sodium Chloride (Normal Saline) 100 mls @ 60 mls/hr IV ASDIRECTED [facility] Last Admin: 09/10/17 09:20 Dose: 60 mls/hr Iopamidol (Isovue-370 (76%)) 100 ml IVPUSH ONETIME ONE Stop: 09/10/17 08:46 Last Admin: 09/10/17 09:20 Dose: 80 ml Lidocaine/Epinephrine (Xylocaine 1% With Epinephrine 1:100,000) 20 ml INJECT ONETIME ONE Stop: 09/10/17 07:53 Last Admin: 09/10/17 08:13 Dose: 20 ml Lidocaine/Epinephrine (Xylocaine 1% With Epinephrine 1:100,000) Confirm Administered Dose 20 ml .ROUTE .STK-MED ONE Stop: 09/10/17 08:00 Last Admin: 09/10/17 08:13 Dose: Not Given Midazolam HCl (Versed 1 Mg/Ml) 2 mg IVPUSH ONETIME ONE Stop: 09/10/17 07:55 Last Admin: 09/10/17 08:00 Dose: 2 mg Non-Formulary Medication (Omeprazole) 20 mg PO DAILY [facility] Sodium Chloride (Saline Flush) 10 ml FLUSH ONETIME ONE Stop: 09/10/17 08:46 Last Admin: 09/10/17 09:34 Dose: 10 ml - Exam Wound/Incisions: Dressing Dry and Intact - Problem List & Annotations (1) Emphysema lung SNOMED Code(s): 52849023 Code(s): J43.9 - EMPHYSEMA, UNSPECIFIED Status: Chronic Priority: Medium Current Visit: Yes Qualifiers: Emphysema type: unspecified Qualified Code(s): J43.9 - Emphysema, unspecified (2) Pneumothorax on left SNOMED Code(s): 049180035 Code(s): J93.9 - PNEUMOTHORAX, UNSPECIFIED Status: Resolved Priority: High Current Visit: Yes - Problem List Review Problem List Initiated/Reviewed/Updated: Yes - My Orders Last 24 Hours: My Active Orders 09/12/17 07:57 Communication Order [RC] ROUTINE Acetaminophen/HYDROcodone [Rulo 325-5 MG] 1 tab PO Q4H PRN 09/12/17 17:24 Up to Chair [RC] ASDIRECTED 09/13/17 09:00 FLU Vacc [id number](6MOS UP)/PF [Flulaval Quad 9994-3865] 60 mcg IM .ONCE ONE Pneumococcal 13-Valent Conjug [Prevnar 13] 0.5 ml IM .ONCE ONE - Assessment Assessment:: The airleak has improved once again. - Plan Plan:: Continuous wall suction. The sutures behind the right ear can be removed Saturday.
[2017-09-13] MEDS ORDERED: FLU Vacc QS 2017-18 (6mos UP)/PF 60 MCG/0.5 ML Syringe IM ONE (09:00)
[2017-09-13] MEDS ORDERED: Pneumococcal 13-Valent Conjugate Vaccine 0.5 ML Syringe IM ONE (09:00)
[2017-09-14] MEDS: Acetaminophen/HYDROcodone 325-5 MG Tab PO PRN ×2 (03:41→15:40)
[2017-09-14] MEDS: Ibuprofen 400 MG Tab PO SCH ×3 (06:31→23:57)
[2017-09-14] MEDS: Pantoprazole 40 MG Tab.CR PO SCH (06:33)
--- NOTE | 2017-09-14 10:10 | PCM.PN ---
- General Info Date of Service: 09/14/17 Functional Status: Reports: Pain Controlled, Tolerating Diet, Ambulating, Urinating - Patient Data Vitals - Most Recent: Last Vital Signs Temp 36.4 C 09/14/17 03:48 Pulse 55 L 09/14/17 03:48 Resp 20 09/14/17 03:48 BP 141/95 H 09/14/17 03:48 Pulse Ox 94 L 09/13/17 19:19 Weight - Most Recent: 86.818 kg I&O - Last 24 Hours: Intake & Output 09/13/17 09/14/17 09/14/17 22:59 06:59 14:59 Intake Total 1160 900 Output Total 1720 2680 Balance -560 -1780 Med Orders - Current: Current Medications Hydrocodone Bitart/Acetaminophen ([place] 325-5 Mg) 1 tab PO Q4H PRN PRN Reason: Pain Last Admin: 09/14/17 03:41 Dose: 1 tab Hydromorphone HCl (Dilaudid) 0.5 mg IVPUSH Q1H PRN PRN Reason: Pain Last Admin: 09/12/17 03:34 Dose: 0.5 mg Ibuprofen (Motrin) 400 mg PO Q8H [facility] Last Admin: 09/14/17 06:31 Dose: 400 mg Ketorolac Tromethamine (Toradol) 15 mg IVPUSH Q6H PRN PRN Reason: Pain Last Admin: 09/12/17 03:29 Dose: 15 mg Miscellaneous Information (Remove Patch) 0 ea TRDERM DAILY [facility] Last Admin: 09/12/17 09:00 Dose: Not Given Nicotine (Habitrol) 21 mg TRDERM ONETIME PRN PRN Reason: Withdrawal Symptoms Pantoprazole Sodium (Protonix) 40 mg PO ACBREAKFAST [facility] Last Admin: 09/14/17 06:33 Dose: 40 mg Sodium Chloride (Saline Flush) 10 ml FLUSH ASDIRECTED PRN PRN Reason: Keep Vein Open Last Admin: 09/10/17 09:20 Dose: 10 ml Discontinued Medications Albuterol/Ipratropium (Duoneb 3.0-0.5 Mg/3 Ml) 3 ml NEB ONETIME ONE Stop: 09/10/17 06:59 Last Admin: 09/10/17 07:11 Dose: 3 ml Diazepam (Valium) 5 mg IVPUSH ONETIME ONE Stop: 09/10/17 08:26 Last Admin: 09/10/17 08:43 Dose: 5 mg Fentanyl (Sublimaze) 100 mcg IVPUSH ONETIME ONE Stop: 09/10/17 07:55 Last Admin: 09/10/17 08:01 Dose: 100 mcg Fentanyl (Sublimaze) 100 mcg IVPUSH ONETIME ONE Stop: 09/10/17 08:21 Last Admin: 09/10/17 08:24 Dose: 100 mcg Fentanyl (Sublimaze) Confirm Administered Dose 100 mcg .ROUTE .STK-MED ONE Stop: 09/10/17 08:29 Last Admin: 09/10/17 08:46 Dose: Not Given Hydromorphone HCl (Dilaudid) Confirm Administered Dose 1 mg .ROUTE .STK-MED ONE Stop: 09/10/17 09:19 Last Admin: 09/10/17 09:36 Dose: Not Given Hydromorphone HCl (Dilaudid) 1 mg IVPUSH ONETIME ONE Stop: 09/10/17 09:27 Last Admin: 09/10/17 09:15 Dose: 0.5 mg Hydromorphone HCl (Dilaudid) 0.5 mg IVPUSH ONETIME ONE Stop: 09/10/17 10:53 Last Admin: 09/10/17 11:00 Dose: 0.5 mg Sodium Chloride (Normal Saline) 1,000 mls @ 150 mls/hr IV ASDIRECTED [facility] Last Admin: 09/10/17 08:42 Dose: 150 mls/hr Sodium Chloride (Normal Saline) 100 mls @ 60 mls/hr IV ASDIRECTED [facility] Last Admin: 09/10/17 09:20 Dose: 60 mls/hr Influenza Virus Vaccine (Flulaval Quad 1825-9083) 60 mcg IM .ONCE ONE Stop: 09/13/17 09:01 Iopamidol (Isovue-370 (76%)) 100 ml IVPUSH ONETIME ONE Stop: 09/10/17 08:46 Last Admin: 09/10/17 09:20 Dose: 80 ml Lidocaine/Epinephrine (Xylocaine 1% With Epinephrine 1:100,000) 20 ml INJECT ONETIME ONE Stop: 09/10/17 07:53 Last Admin: 09/10/17 08:13 Dose: 20 ml Lidocaine/Epinephrine (Xylocaine 1% With Epinephrine 1:100,000) Confirm Administered Dose 20 ml .ROUTE .STK-MED ONE Stop: 09/10/17 08:00 Last Admin: 09/10/17 08:13 Dose: Not Given Midazolam HCl (Versed 1 Mg/Ml) 2 mg IVPUSH ONETIME ONE Stop: 09/10/17 07:55 Last Admin: 09/10/17 08:00 Dose: 2 mg Non-Formulary Medication (Omeprazole) 20 mg PO DAILY [facility] Pneumococcal 13-Valent Conj Vacc (Prevnar 13) 0.5 ml IM .ONCE ONE Stop: 09/13/17 09:01 Sodium Chloride (Saline Flush) 10 ml FLUSH ONETIME ONE Stop: 09/10/17 08:46 Last Admin: 09/10/17 09:34 Dose: 10 ml - Exam Wound/Incisions: Dressing Dry and Intact, Drainage (Intermittent air leak and respiratory variation) - Problem List & Annotations (1) Emphysema lung SNOMED Code(s): 82152891 Code(s): J43.9 - EMPHYSEMA, UNSPECIFIED Status: Chronic Priority: Medium Current Visit: Yes Qualifiers: Emphysema type: unspecified Qualified Code(s): J43.9 - Emphysema, unspecified (2) Pneumothorax on left SNOMED Code(s): 118700756 Code(s): J93.9 - PNEUMOTHORAX, UNSPECIFIED Status: Resolved Priority: High Current Visit: Yes - Problem List Review Problem List Initiated/Reviewed/Updated: Yes - My Orders Last 24 Hours: My Active Orders 09/13/17 14:40 Incentive Spirometry [RT Incentive Spirometry] [RC] ASDIRECTED - Assessment Assessment:: Stable. - Plan Plan:: Chest x-ray tomorrow morning.
[2017-09-15] MEDS: Ibuprofen 400 MG Tab PO SCH ×3 (06:16→23:52)
[2017-09-15] MEDS: Pantoprazole 40 MG Tab.CR PO SCH (06:16)
[2017-09-15] MEDS: Acetaminophen/HYDROcodone 325-5 MG Tab PO PRN ×4 (07:52→20:49)
--- NOTE | 2017-09-15 07:55 | CR ---
Chest: Portable view of the chest was obtained. Comparison: Prior chest x-ray 09/10/17. Small apical pneumothorax is seen which is an interval change from prior study. Left chest tube has been withdrawn with sidehole being outside the chest. Increased subcutaneous air is seen. Atelectasis is noted within both lung bases. Heart is mildly enlarged. Bony structures are grossly intact. Impression: 1. Small apical pneumothorax has appeared in the interim from prior study. 2. Left-sided chest tube has been withdrawn with sideholes being outside the chest. 3. Increased subcutaneous air within the left chest as well as increased atelectasis within both lung bases. Diagnostic code #5
[2017-09-15] MEDS: HYDROmorphone 0.5 MG/0.5 ML Syringe IVPUSH PRN ×3 (10:02→19:20)
[2017-09-15] MEDS ORDERED: Cyclobenzaprine 10 MG Tab PO PRN (10:12)
--- NOTE | 2017-09-15 10:17 | PCM.PN ---
- General Info Date of Service: 09/15/17 Functional Status: Reports: Pain Controlled, Tolerating Diet, Ambulating, Urinating, Incentive Spirometry - Patient Data Vitals - Most Recent: Last Vital Signs Temp 36.4 C 09/15/17 03:12 Pulse 52 L 09/15/17 03:12 Resp 20 09/15/17 03:12 BP 137/89 09/15/17 03:12 Pulse Ox 94 L 09/15/17 03:12 Weight - Most Recent: 86.319 kg I&O - Last 24 Hours: Intake & Output 09/14/17 09/15/17 09/15/17 22:59 06:59 14:59 Intake Total 800 700 Output Total 1430 1310 Balance -630 -610 Med Orders - Current: Current Medications Hydrocodone Bitart/Acetaminophen (Campbell 325-5 Mg) 1 tab PO Q4H PRN PRN Reason: Pain Last Admin: 09/15/17 07:52 Dose: 1 tab Cyclobenzaprine HCl (Flexeril) 10 mg PO BEDTIME PRN PRN Reason: Spasms Hydromorphone HCl (Dilaudid) 0.5 mg IVPUSH Q1H PRN PRN Reason: Pain Last Admin: 09/15/17 10:02 Dose: 0.5 mg Ibuprofen (Motrin) 400 mg PO Q8H [facility] Last Admin: 09/15/17 06:16 Dose: 400 mg Ketorolac Tromethamine (Toradol) 15 mg IVPUSH Q6H PRN PRN Reason: Pain Last Admin: 09/12/17 03:29 Dose: 15 mg Nicotine (Habitrol) 21 mg TRDERM ONETIME PRN PRN Reason: Withdrawal Symptoms Pantoprazole Sodium (Protonix) 40 mg PO ACBREAKFAST [facility] Last Admin: 09/15/17 06:16 Dose: 40 mg Sodium Chloride (Saline Flush) 10 ml FLUSH ASDIRECTED PRN PRN Reason: Keep Vein Open Last Admin: 09/10/17 09:20 Dose: 10 ml Discontinued Medications Albuterol/Ipratropium (Duoneb 3.0-0.5 Mg/3 Ml) 3 ml NEB ONETIME ONE Stop: 09/10/17 06:59 Last Admin: 09/10/17 07:11 Dose: 3 ml Diazepam (Valium) 5 mg IVPUSH ONETIME ONE Stop: 09/10/17 08:26 Last Admin: 09/10/17 08:43 Dose: 5 mg Fentanyl (Sublimaze) 100 mcg IVPUSH ONETIME ONE Stop: 09/10/17 07:55 Last Admin: 09/10/17 08:01 Dose: 100 mcg Fentanyl (Sublimaze) 100 mcg IVPUSH ONETIME ONE Stop: 09/10/17 08:21 Last Admin: 09/10/17 08:24 Dose: 100 mcg Fentanyl (Sublimaze) Confirm Administered Dose 100 mcg .ROUTE .STK-MED ONE Stop: 09/10/17 08:29 Last Admin: 09/10/17 08:46 Dose: Not Given Hydromorphone HCl (Dilaudid) Confirm Administered Dose 1 mg .ROUTE .STK-MED ONE Stop: 09/10/17 09:19 Last Admin: 09/10/17 09:36 Dose: Not Given Hydromorphone HCl (Dilaudid) 1 mg IVPUSH ONETIME ONE Stop: 09/10/17 09:27 Last Admin: 09/10/17 09:15 Dose: 0.5 mg Hydromorphone HCl (Dilaudid) 0.5 mg IVPUSH ONETIME ONE Stop: 09/10/17 10:53 Last Admin: 09/10/17 11:00 Dose: 0.5 mg Sodium Chloride (Normal Saline) 1,000 mls @ 150 mls/hr IV ASDIRECTED [facility] Last Admin: 09/10/17 08:42 Dose: 150 mls/hr Sodium Chloride (Normal Saline) 100 mls @ 60 mls/hr IV ASDIRECTED [facility] Last Admin: 09/10/17 09:20 Dose: 60 mls/hr Influenza Virus Vaccine (Flulaval Quad [id number]) 60 mcg IM .ONCE ONE Stop: 09/13/17 09:01 Iopamidol (Isovue-370 (76%)) 100 ml IVPUSH ONETIME ONE Stop: 09/10/17 08:46 Last Admin: 09/10/17 09:20 Dose: 80 ml Lidocaine/Epinephrine (Xylocaine 1% With Epinephrine 1:100,000) 20 ml INJECT ONETIME ONE Stop: 09/10/17 07:53 Last Admin: 09/10/17 08:13 Dose: 20 ml Lidocaine/Epinephrine (Xylocaine 1% With Epinephrine 1:100,000) Confirm Administered Dose 20 ml .ROUTE .STK-MED ONE Stop: 09/10/17 08:00 Last Admin: 09/10/17 08:13 Dose: Not Given Midazolam HCl (Versed 1 Mg/Ml) 2 mg IVPUSH ONETIME ONE Stop: 09/10/17 07:55 Last Admin: 09/10/17 08:00 Dose: 2 mg Miscellaneous Information (Remove Patch) 0 ea TRDERM DAILY [facility] Last Admin: 09/14/17 18:06 Dose: Not Given Non-Formulary Medication (Omeprazole) 20 mg PO DAILY [facility] Pneumococcal 13-Valent Conj Vacc (Prevnar 13) 0.5 ml IM .ONCE ONE Stop: 09/13/17 09:01 Sodium Chloride (Saline Flush) 10 ml FLUSH ONETIME ONE Stop: 09/10/17 08:46 Last Admin: 09/10/17 09:34 Dose: 10 ml - Exam HEENT: Other (Heavy exudate and erythema at the right ear excision site with less than optimal reapproximation of the closure the area slightly tender) Wound/Incisions: Other (Significant air leak) - Problem List & Annotations (1) Emphysema lung SNOMED Code(s): 21287888 Code(s): J43.9 - EMPHYSEMA, UNSPECIFIED Status: Chronic Priority: Medium Current Visit: Yes Qualifiers: Emphysema type: unspecified Qualified Code(s): J43.9 - Emphysema, unspecified (2) Pneumothorax on left SNOMED Code(s): 203907751 Code(s): J93.9 - PNEUMOTHORAX, UNSPECIFIED Status: Resolved Priority: High Current Visit: Yes - Problem List Review Problem List Initiated/Reviewed/Updated: Yes - My Orders Last 24 Hours: My Active Orders 09/15/17 09:53 Chest 1V Frontal [CR] Routine 09/15/17 10:11 CULTURE WOUND [RM] Routine 09/15/17 10:12 Cyclobenzaprine [Flexeril] 10 mg PO BEDTIME PRN - Assessment Assessment:: The chest x-ray shows a small pneumothorax and subcutaneous air, but more importantly the chest tube is slightly outside the pleural space and inspection of the collection unit revealed disconnection of the chest tube from the drainage tubing. This could've occurred because of patient movement and suboptimal taping of the tubing. The chest tube will need to be pulled and another will have to be reinserted. - Plan Plan:: 1. Chest tube removal with closure of the tube site 2. Left tube thoracostomy to follow.
--- NOTE | 2017-09-15 10:19 | PCM.OPNOTE ---
- General Post-Op/Procedure Note Date of Surgery/Procedure: 09/15/17 Operative Procedure(s): Left chest tube removal Findings: Subcutaneous air along with partial removal of the left chest tube Pre Op Diagnosis: Spontaneous left pneumothorax status post left tube thoracostomy with displacement of the chest tube Post-Op Diagnosis: Same Anesthesia Technique: Local Primary Surgeon: Claudy Samayoa Pathology: None EBL in mLs: 0 Complications: None Condition: Good Free Text/Narrative:: Intake & Output 09/14/17 09/15/17 09/15/17 22:59 06:59 14:59 Intake Total 800 700 Output Total 1430 1310 Balance -630 -610 The patient was placed in the right lateral decubitus position. The left chest wall was prepped with Betadine and then draped sterilely. 5 mL of 1% lidocaine with epinephrine was infused into the skin and subcutaneous tissue of the tube insertion site. The suture was cut. The tube was pulled. I closed the tube site with a [id number] 2-0 nylon. A gauze dressing was applied and there were no complications.
--- NOTE | 2017-09-15 10:22 | PCM.OPNOTE ---
- General Post-Op/Procedure Note Date of Surgery/Procedure: 09/15/17 Operative Procedure(s): Left tube thoracostomy with a 20 [place] straight tube Findings: Subcutaneous air left-sided pneumothorax Pre Op Diagnosis: Subcutaneous air with left-sided pneumothorax and Status post removal of a displaced left chest tube Post-Op Diagnosis: Same Anesthesia Technique: Local Primary Surgeon: Claudy Samayoa Pathology: None EBL in mLs: 0 Complications: None Condition: Good Free Text/Narrative:: Intake & Output 09/14/17 09/15/17 09/15/17 22:59 06:59 14:59 Intake Total 800 700 Output Total 1430 1310 Balance -630 -610 After placement of the patient in the right lateral decubitus position I prepped the chest with Betadine then draped to feel sterilely. Local analgesia was infused into the skin and subcutaneous tissues and intercostal space. An 11 blade was used to make a 2 cm incision. Hemostat was used to spread the intercostal muscle. A 20 [place] chest tube was inserted into the left chest without difficulty. There was a released. There was no blood. I secured the tube to the skin with a 0 silk suture. Gauze and tape were used for the dressing. The tube was connected to the drainage collection unit and there was minimal air leak.
[2017-09-15] MEDS ORDERED: Sulfamethoxazole/Trimethoprim 800-160 MG Tab PO SCH (15:30)
[2017-09-15] MEDS: Cyclobenzaprine 10 MG Tab PO PRN (20:47)
[2017-09-16] MEDS: Ketorolac 15 MG/ML SDV IVPUSH PRN ×2 (03:36→12:50)
[2017-09-16] MEDS: HYDROmorphone 0.5 MG/0.5 ML Syringe IVPUSH PRN (03:40)
[2017-09-16] MEDS: Sulfamethoxazole/Trimethoprim 800-160 MG Tab PO SCH ×2 (06:22→21:45)
[2017-09-16] MEDS: Pantoprazole 40 MG Tab.CR PO SCH (06:23)
[2017-09-16] MEDS: Ibuprofen 400 MG Tab PO SCH ×3 (06:50→23:04)
--- NOTE | 2017-09-16 08:06 | CR ---
Chest: Frontal view of the chest was obtained. Comparison: Prior chest x-ray performed earlier on the same day (7:23 AM). Chest tube has been advanced. Previous pneumothorax has been evacuated. Patient rotated for this exam. Heart is mildly enlarged. Mild atelectasis within both lungs. Stable subcutaneous air within the left chest wall is noted. Impression: 1. Chest tube has been advanced. Previous pneumothorax has been evacuated. 2. Bibasilar atelectasis. 3. Other incidental findings. Diagnostic code #2 I agree with preliminary report issued by [facility] ([facility] preliminary report dictated on 09/15/17, 11:35 AM Central Time)
--- NOTE | 2017-09-16 12:42 | PCM.PN ---
- General Info Date of Service: 09/16/17 Functional Status: Reports: Pain Controlled (Flexeril and neck massage seemed to help with spasms back and shoulder spasms), Tolerating Diet, Ambulating, Urinating - Patient Data Vitals - Most Recent: Last Vital Signs Temp 36.4 C 09/16/17 07:38 Pulse 58 L 09/16/17 07:38 Resp 17 09/16/17 07:38 BP 128/89 09/16/17 07:38 Pulse Ox 94 L 09/16/17 07:38 Weight - Most Recent: 86.682 kg I&O - Last 24 Hours: Intake & Output 09/15/17 09/16/17 09/16/17 22:59 06:59 14:59 Intake Total 720 700 360 Output Total 1150 1000 Balance -430 -300 360 Med Orders - Current: Current Medications Hydrocodone Bitart/Acetaminophen ([place] 325-5 Mg) 1 tab PO Q4H PRN PRN Reason: Pain Last Admin: 09/15/17 20:49 Dose: 1 tab Cyclobenzaprine HCl (Flexeril) 10 mg PO TID PRN PRN Reason: muscle spasms Last Admin: 09/15/17 20:47 Dose: 10 mg Hydromorphone HCl (Dilaudid) 0.5 mg IVPUSH Q1H PRN PRN Reason: Pain Last Admin: 09/16/17 03:40 Dose: 0.5 mg Ibuprofen (Motrin) 400 mg PO Q8H [facility] Last Admin: 09/16/17 06:50 Dose: 400 mg Ketorolac Tromethamine (Toradol) 15 mg IVPUSH Q6H PRN PRN Reason: Pain Last Admin: 09/16/17 03:36 Dose: 15 mg Nicotine (Habitrol) 21 mg TRDERM ONETIME PRN PRN Reason: Withdrawal Symptoms Pantoprazole Sodium (Protonix) 40 mg PO ACBREAKFAST [facility] Last Admin: 09/16/17 06:23 Dose: 40 mg Sodium Chloride (Saline Flush) 10 ml FLUSH ASDIRECTED PRN PRN Reason: Keep Vein Open Last Admin: 09/10/17 09:20 Dose: 10 ml Trimethoprim/Sulfamethoxazole (Septra Ds) 1 tab PO BID [facility] Last Admin: 09/16/17 06:22 Dose: 1 tab Discontinued Medications Albuterol/Ipratropium (Duoneb 3.0-0.5 Mg/3 Ml) 3 ml NEB ONETIME ONE Stop: 09/10/17 06:59 Last Admin: 09/10/17 07:11 Dose: 3 ml Cyclobenzaprine HCl (Flexeril) 10 mg PO BEDTIME PRN PRN Reason: Spasms Last Admin: 09/15/17 11:28 Dose: 10 mg Diazepam (Valium) 5 mg IVPUSH ONETIME ONE Stop: 09/10/17 08:26 Last Admin: 09/10/17 08:43 Dose: 5 mg Fentanyl (Sublimaze) 100 mcg IVPUSH ONETIME ONE Stop: 09/10/17 07:55 Last Admin: 09/10/17 08:01 Dose: 100 mcg Fentanyl (Sublimaze) 100 mcg IVPUSH ONETIME ONE Stop: 09/10/17 08:21 Last Admin: 09/10/17 08:24 Dose: 100 mcg Fentanyl (Sublimaze) Confirm Administered Dose 100 mcg .ROUTE .STK-MED ONE Stop: 09/10/17 08:29 Last Admin: 09/10/17 08:46 Dose: Not Given Hydromorphone HCl (Dilaudid) Confirm Administered Dose 1 mg .ROUTE .STK-MED ONE Stop: 09/10/17 09:19 Last Admin: 09/10/17 09:36 Dose: Not Given Hydromorphone HCl (Dilaudid) 1 mg IVPUSH ONETIME ONE Stop: 09/10/17 09:27 Last Admin: 09/10/17 09:15 Dose: 0.5 mg Hydromorphone HCl (Dilaudid) 0.5 mg IVPUSH ONETIME ONE Stop: 09/10/17 10:53 Last Admin: 09/10/17 11:00 Dose: 0.5 mg Sodium Chloride (Normal Saline) 1,000 mls @ 150 mls/hr IV ASDIRECTED [facility] Last Admin: 09/10/17 08:42 Dose: 150 mls/hr Sodium Chloride (Normal Saline) 100 mls @ 60 mls/hr IV ASDIRECTED [facility] Last Admin: 09/10/17 09:20 Dose: 60 mls/hr Influenza Virus Vaccine (Flulaval Quad [id number]) 60 mcg IM .ONCE ONE Stop: 02/02/18 09:01 Iopamidol (Isovue-370 (76%)) 100 ml IVPUSH ONETIME ONE Stop: 09/10/17 08:46 Last Admin: 09/10/17 09:20 Dose: 80 ml Lidocaine/Epinephrine (Xylocaine 1% With Epinephrine 1:100,000) 20 ml INJECT ONETIME ONE Stop: 09/10/17 07:53 Last Admin: 09/10/17 08:13 Dose: 20 ml Lidocaine/Epinephrine (Xylocaine 1% With Epinephrine 1:100,000) Confirm Administered Dose 20 ml .ROUTE .STK-MED ONE Stop: 09/10/17 08:00 Last Admin: 09/10/17 08:13 Dose: Not Given Midazolam HCl (Versed 1 Mg/Ml) 2 mg IVPUSH ONETIME ONE Stop: 09/10/17 07:55 Last Admin: 09/10/17 08:00 Dose: 2 mg Miscellaneous Information (Remove Patch) 0 ea TRDERM DAILY [facility] Last Admin: 09/14/17 18:06 Dose: Not Given Non-Formulary Medication (Omeprazole) 20 mg PO DAILY [facility] Pneumococcal 13-Valent Conj Vacc (Prevnar 13) 0.5 ml IM .ONCE ONE Stop: 09/13/17 09:01 Sodium Chloride (Saline Flush) 10 ml FLUSH ONETIME ONE Stop: 09/10/17 08:46 Last Admin: 09/10/17 09:34 Dose: 10 ml Trimethoprim/Sulfamethoxazole (Septra Ds) 1 tab PO BID [facility] Last Admin: 09/15/17 17:02 Dose: 1 tab - Exam Quality Assessment: Supplemental Oxygen General: Alert, Oriented Lungs: Normal Respiratory Effort - Problem List & Annotations (1) Emphysema lung SNOMED Code(s): 62307811 Code(s): J43.9 - EMPHYSEMA, UNSPECIFIED Status: Chronic Priority: Medium Current Visit: Yes Qualifiers: Emphysema type: unspecified Qualified Code(s): J43.9 - Emphysema, unspecified (2) Pneumothorax on left SNOMED Code(s): 341319038 Code(s): J93.9 - PNEUMOTHORAX, UNSPECIFIED Status: Resolved Priority: High Current Visit: Yes - Problem List Review Problem List Initiated/Reviewed/Updated: Yes - My Orders Last 24 Hours: My Active Orders 09/15/17 14:21 Communication Order [RC] DAILY 09/15/17 20:07 Cyclobenzaprine [Flexeril] 10 mg PO TID PRN 09/15/17 20:16 Heat Therapy [OM.PC] Routine 09/15/17 20:17 Communication Order [RC] DAILY 09/16/17 05:00 Sulfamethoxazole/Trimethoprim [Septra DS] 1 tab PO BID - Assessment Assessment:: Small air leak. - Plan Plan:: Continue suction.
[2017-09-17] MEDS: Pantoprazole 40 MG Tab.CR PO SCH (06:45)
[2017-09-17] MEDS: Ibuprofen 400 MG Tab PO SCH ×3 (06:46→23:13)
--- NOTE | 2017-09-17 07:46 | PCM.PN ---
- General Info Date of Service: 09/17/17 Functional Status: Reports: Pain Controlled, Tolerating Diet, Ambulating, Urinating - Patient Data Vitals - Most Recent: Last Vital Signs Temp 36.4 C 09/17/17 03:20 Pulse 64 09/17/17 03:20 Resp 20 09/17/17 03:20 BP 137/84 09/17/17 03:20 Pulse Ox 92 L 09/17/17 03:20 Weight - Most Recent: 88.178 kg I&O - Last 24 Hours: Intake & Output 09/16/17 09/17/17 09/17/17 22:59 06:59 14:59 Intake Total 840 1200 Output Total 900 930 Balance -60 270 Med Orders - Current: Current Medications Hydrocodone Bitart/Acetaminophen ([place] 325-5 Mg) 1 tab PO Q4H PRN PRN Reason: Pain Last Admin: 09/15/17 20:49 Dose: 1 tab Cyclobenzaprine HCl (Flexeril) 10 mg PO TID PRN PRN Reason: muscle spasms Last Admin: 09/15/17 20:47 Dose: 10 mg Hydromorphone HCl (Dilaudid) 0.5 mg IVPUSH Q1H PRN PRN Reason: Pain Last Admin: 09/16/17 03:40 Dose: 0.5 mg Ibuprofen (Motrin) 400 mg PO Q8H [facility] Last Admin: 09/17/17 06:46 Dose: 400 mg Ketorolac Tromethamine (Toradol) 15 mg IVPUSH Q6H PRN PRN Reason: Pain Last Admin: 09/16/17 12:50 Dose: 15 mg Nicotine (Habitrol) 21 mg TRDERM ONETIME PRN PRN Reason: Withdrawal Symptoms Pantoprazole Sodium (Protonix) 40 mg PO ACBREAKFAST [facility] Last Admin: 09/17/17 06:45 Dose: 40 mg Sodium Chloride (Saline Flush) 10 ml FLUSH ASDIRECTED PRN PRN Reason: Keep Vein Open Last Admin: 09/10/17 09:20 Dose: 10 ml Trimethoprim/Sulfamethoxazole (Septra Ds) 1 tab PO BID [facility] Last Admin: 09/16/17 21:45 Dose: 1 tab Discontinued Medications Albuterol/Ipratropium (Duoneb 3.0-0.5 Mg/3 Ml) 3 ml NEB ONETIME ONE Stop: 09/10/17 06:59 Last Admin: 09/10/17 07:11 Dose: 3 ml Cyclobenzaprine HCl (Flexeril) 10 mg PO BEDTIME PRN PRN Reason: Spasms Last Admin: 09/15/17 11:28 Dose: 10 mg Diazepam (Valium) 5 mg IVPUSH ONETIME ONE Stop: 09/10/17 08:26 Last Admin: 09/10/17 08:43 Dose: 5 mg Fentanyl (Sublimaze) 100 mcg IVPUSH ONETIME ONE Stop: 09/10/17 07:55 Last Admin: 09/10/17 08:01 Dose: 100 mcg Fentanyl (Sublimaze) 100 mcg IVPUSH ONETIME ONE Stop: 09/10/17 08:21 Last Admin: 09/10/17 08:24 Dose: 100 mcg Fentanyl (Sublimaze) Confirm Administered Dose 100 mcg .ROUTE .STK-MED ONE Stop: 09/10/17 08:29 Last Admin: 09/10/17 08:46 Dose: Not Given Hydromorphone HCl (Dilaudid) Confirm Administered Dose 1 mg .ROUTE .STK-MED ONE Stop: 09/10/17 09:19 Last Admin: 09/10/17 09:36 Dose: Not Given Hydromorphone HCl (Dilaudid) 1 mg IVPUSH ONETIME ONE Stop: 09/10/17 09:27 Last Admin: 09/10/17 09:15 Dose: 0.5 mg Hydromorphone HCl (Dilaudid) 0.5 mg IVPUSH ONETIME ONE Stop: 09/10/17 10:53 Last Admin: 09/10/17 11:00 Dose: 0.5 mg Sodium Chloride (Normal Saline) 1,000 mls @ 150 mls/hr IV ASDIRECTED [facility] Last Admin: 09/10/17 08:42 Dose: 150 mls/hr Sodium Chloride (Normal Saline) 100 mls @ 60 mls/hr IV ASDIRECTED [facility] Last Admin: 09/10/17 09:20 Dose: 60 mls/hr Influenza Virus Vaccine (Flulaval Quad [id number]) 60 mcg IM .ONCE ONE Stop: 09/13/17 09:01 Iopamidol (Isovue-370 (76%)) 100 ml IVPUSH ONETIME ONE Stop: 09/10/17 08:46 Last Admin: 09/10/17 09:20 Dose: 80 ml Lidocaine/Epinephrine (Xylocaine 1% With Epinephrine 1:100,000) 20 ml INJECT ONETIME ONE Stop: 09/10/17 07:53 Last Admin: 09/10/17 08:13 Dose: 20 ml Lidocaine/Epinephrine (Xylocaine 1% With Epinephrine 1:100,000) Confirm Administered Dose 20 ml .ROUTE .STK-MED ONE Stop: 09/10/17 08:00 Last Admin: 09/10/17 08:13 Dose: Not Given Midazolam HCl (Versed 1 Mg/Ml) 2 mg IVPUSH ONETIME ONE Stop: 09/10/17 07:55 Last Admin: 09/10/17 08:00 Dose: 2 mg Miscellaneous Information (Remove Patch) 0 ea TRDERM DAILY [facility] Last Admin: 09/14/17 18:06 Dose: Not Given Non-Formulary Medication (Omeprazole) 20 mg PO DAILY [facility] Pneumococcal 13-Valent Conj Vacc (Prevnar 13) 0.5 ml IM .ONCE ONE Stop: 09/13/17 09:01 Sodium Chloride (Saline Flush) 10 ml FLUSH ONETIME ONE Stop: 09/10/17 08:46 Last Admin: 09/10/17 09:34 Dose: 10 ml Trimethoprim/Sulfamethoxazole (Septra Ds) 1 tab PO BID [facility] Last Admin: 09/15/17 17:02 Dose: 1 tab - Problem List & Annotations (1) Emphysema lung SNOMED Code(s): 20938000 Code(s): J43.9 - EMPHYSEMA, UNSPECIFIED Status: Chronic Priority: Medium Current Visit: Yes Qualifiers: Emphysema type: unspecified Qualified Code(s): J43.9 - Emphysema, unspecified (2) Pneumothorax on left SNOMED Code(s): 891524230 Code(s): J93.9 - PNEUMOTHORAX, UNSPECIFIED Status: Resolved Priority: High Current Visit: Yes - Problem List Review Problem List Initiated/Reviewed/Updated: Yes - Assessment Assessment:: Respiratory variation. - Plan Plan:: DC oxygen then waterseal tomorrow. Suture removal right ear tomorrow.
[2017-09-17] MEDS: Sulfamethoxazole/Trimethoprim 800-160 MG Tab PO SCH ×2 (09:45→21:18)
[2017-09-17] MEDS: Cyclobenzaprine 10 MG Tab PO PRN ×2 (15:37→23:13)
[2017-09-18] MEDS: Pantoprazole 40 MG Tab.CR PO SCH (06:20)
[2017-09-18] MEDS: Ibuprofen 400 MG Tab PO SCH ×3 (06:23→23:34)
--- NOTE | 2017-09-18 07:43 | PCM.PN ---
- General Info Date of Service: 09/18/17 Functional Status: Reports: Pain Controlled, Tolerating Diet, Ambulating, Urinating - Review of Systems Pulmonary: Reports: No Symptoms Cardiovascular: Reports: No Symptoms Gastrointestinal: Reports: No Symptoms - Patient Data Vitals - Most Recent: Last Vital Signs Temp 36.4 C 09/18/17 03:29 Pulse 71 09/18/17 03:29 Resp 16 09/18/17 03:29 BP 136/81 09/18/17 03:29 Pulse Ox 92 L 09/18/17 03:29 Weight - Most Recent: 86.999 kg I&O - Last 24 Hours: Intake & Output 09/17/17 09/18/17 09/18/17 22:59 06:59 14:59 Intake Total 480 1175 Output Total 650 1110 Balance -170 65 Naresh Results Last 24 Hours: Microbiology 09/15/17 10:10 Wound Culture - Final Ear, Right Med Orders - Current: Current Medications Hydrocodone Bitart/Acetaminophen ([place] 325-5 Mg) 1 tab PO Q4H PRN PRN Reason: Pain Last Admin: 09/15/17 20:49 Dose: 1 tab Cyclobenzaprine HCl (Flexeril) 10 mg PO TID PRN PRN Reason: muscle spasms Last Admin: 09/17/17 23:13 Dose: 10 mg Hydromorphone HCl (Dilaudid) 0.5 mg IVPUSH Q1H PRN PRN Reason: Pain Last Admin: 09/16/17 03:40 Dose: 0.5 mg Ibuprofen (Motrin) 400 mg PO Q8H [facility] Last Admin: 09/18/17 06:23 Dose: 400 mg Ketorolac Tromethamine (Toradol) 15 mg IVPUSH Q6H PRN PRN Reason: Pain Last Admin: 09/16/17 12:50 Dose: 15 mg Nicotine (Habitrol) 21 mg TRDERM ONETIME PRN PRN Reason: Withdrawal Symptoms Pantoprazole Sodium (Protonix) 40 mg PO ACBREAKFAST [facility] Last Admin: 09/18/17 06:20 Dose: 40 mg Sodium Chloride (Saline Flush) 10 ml FLUSH ASDIRECTED PRN PRN Reason: Keep Vein Open Last Admin: 09/10/17 09:20 Dose: 10 ml Discontinued Medications Albuterol/Ipratropium (Duoneb 3.0-0.5 Mg/3 Ml) 3 ml NEB ONETIME ONE Stop: 09/10/17 06:59 Last Admin: 09/10/17 07:11 Dose: 3 ml Cyclobenzaprine HCl (Flexeril) 10 mg PO BEDTIME PRN PRN Reason: Spasms Last Admin: 09/15/17 11:28 Dose: 10 mg Diazepam (Valium) 5 mg IVPUSH ONETIME ONE Stop: 09/10/17 08:26 Last Admin: 09/10/17 08:43 Dose: 5 mg Fentanyl (Sublimaze) 100 mcg IVPUSH ONETIME ONE Stop: 09/10/17 07:55 Last Admin: 09/10/17 08:01 Dose: 100 mcg Fentanyl (Sublimaze) 100 mcg IVPUSH ONETIME ONE Stop: 09/10/17 08:21 Last Admin: 09/10/17 08:24 Dose: 100 mcg Fentanyl (Sublimaze) Confirm Administered Dose 100 mcg .ROUTE .STK-MED ONE Stop: 09/10/17 08:29 Last Admin: 09/10/17 08:46 Dose: Not Given Hydromorphone HCl (Dilaudid) Confirm Administered Dose 1 mg .ROUTE .STK-MED ONE Stop: 09/10/17 09:19 Last Admin: 09/10/17 09:36 Dose: Not Given Hydromorphone HCl (Dilaudid) 1 mg IVPUSH ONETIME ONE Stop: 09/10/17 09:27 Last Admin: 09/10/17 09:15 Dose: 0.5 mg Hydromorphone HCl (Dilaudid) 0.5 mg IVPUSH ONETIME ONE Stop: 09/10/17 10:53 Last Admin: 09/10/17 11:00 Dose: 0.5 mg Sodium Chloride (Normal Saline) 1,000 mls @ 150 mls/hr IV ASDIRECTED [facility] Last Admin: 09/10/17 08:42 Dose: 150 mls/hr Sodium Chloride (Normal Saline) 100 mls @ 60 mls/hr IV ASDIRECTED [facility] Last Admin: 09/10/17 09:20 Dose: 60 mls/hr Influenza Virus Vaccine (Flulaval Quad [id number]) 60 mcg IM .ONCE ONE Stop: 09/13/17 09:01 Iopamidol (Isovue-370 (76%)) 100 ml IVPUSH ONETIME ONE Stop: 09/10/17 08:46 Last Admin: 09/10/17 09:20 Dose: 80 ml Lidocaine/Epinephrine (Xylocaine 1% With Epinephrine 1:100,000) 20 ml INJECT ONETIME ONE Stop: 09/10/17 07:53 Last Admin: 09/10/17 08:13 Dose: 20 ml Lidocaine/Epinephrine (Xylocaine 1% With Epinephrine 1:100,000) Confirm Administered Dose 20 ml .ROUTE .STK-MED ONE Stop: 09/10/17 08:00 Last Admin: 09/10/17 08:13 Dose: Not Given Midazolam HCl (Versed 1 Mg/Ml) 2 mg IVPUSH ONETIME ONE Stop: 09/10/17 07:55 Last Admin: 09/10/17 08:00 Dose: 2 mg Miscellaneous Information (Remove Patch) 0 ea TRDERM DAILY [facility] Last Admin: 09/14/17 18:06 Dose: Not Given Non-Formulary Medication (Omeprazole) 20 mg PO DAILY [facility] Pneumococcal 13-Valent Conj Vacc (Prevnar 13) 0.5 ml IM .ONCE ONE Stop: 09/13/17 09:01 Sodium Chloride (Saline Flush) 10 ml FLUSH ONETIME ONE Stop: 09/10/17 08:46 Last Admin: 09/10/17 09:34 Dose: 10 ml Trimethoprim/Sulfamethoxazole (Septra Ds) 1 tab PO BID [facility] Last Admin: 09/15/17 17:02 Dose: 1 tab Trimethoprim/Sulfamethoxazole (Septra Ds) 1 tab PO BID [facility] Last Admin: 09/17/17 21:18 Dose: 1 tab - Exam Quality Assessment: Supplemental Oxygen General: Alert, Oriented, Cooperative, No Acute Distress Wound/Incisions: Dressing Dry and Intact, Other (Respiratory variation, no significant air leak) - Problem List & Annotations (1) Emphysema lung SNOMED Code(s): 45423494 Code(s): J43.9 - EMPHYSEMA, UNSPECIFIED Status: Chronic Priority: Medium Current Visit: Yes Qualifiers: Emphysema type: unspecified Qualified Code(s): J43.9 - Emphysema, unspecified (2) Pneumothorax on left SNOMED Code(s): 289617018 Code(s): J93.9 - PNEUMOTHORAX, UNSPECIFIED Status: Resolved Priority: High Current Visit: Yes - Problem List Review Problem List Initiated/Reviewed/Updated: Yes - My Orders Last 24 Hours: My Active Orders 09/17/17 20:02 Oxygen Therapy Adult [Oxygen Therapy] [RC] ASDIRECTED 09/18/17 07:40 Communication Order [] ROUTINE 09/18/17 07:41 Chest Tube Management [RC] ASDIRECTED - Assessment Assessment:: Respiratory variation. - Plan Plan:: Waterseal. Discontinue suction. Chest x-ray in the morning.
[2017-09-18] MEDS: Acetaminophen/HYDROcodone 325-5 MG Tab PO PRN (12:02)
[2017-09-19] MEDS: Ibuprofen 400 MG Tab PO SCH ×2 (06:19→16:16)
[2017-09-19] MEDS: Pantoprazole 40 MG Tab.CR PO SCH (06:19)
--- NOTE | 2017-09-19 08:16 | PCM.PN ---
- General Info Date of Service: 09/19/17 Functional Status: Reports: Pain Controlled, Tolerating Diet, Ambulating - Patient Data Vitals - Most Recent: Last Vital Signs Temp 36.5 C 09/19/17 08:04 Pulse 60 09/19/17 08:04 Resp 18 09/19/17 08:04 BP 145/100 H 09/19/17 08:05 Pulse Ox 93 L 09/19/17 08:04 Weight - Most Recent: 87.498 kg I&O - Last 24 Hours: Intake & Output 09/18/17 09/19/17 09/19/17 22:59 06:59 14:59 Intake Total 730 200 Output Total 20 Balance 710 200 Med Orders - Current: Current Medications Hydrocodone Bitart/Acetaminophen ([place] 325-5 Mg) 1 tab PO Q4H PRN PRN Reason: Pain Last Admin: 09/18/17 12:02 Dose: 1 tab Cyclobenzaprine HCl (Flexeril) 10 mg PO TID PRN PRN Reason: muscle spasms Last Admin: 09/17/17 23:13 Dose: 10 mg Hydromorphone HCl (Dilaudid) 0.5 mg IVPUSH Q1H PRN PRN Reason: Pain Last Admin: 09/16/17 03:40 Dose: 0.5 mg Ibuprofen (Motrin) 400 mg PO Q8H [facility] Last Admin: 09/19/17 06:19 Dose: 400 mg Ketorolac Tromethamine (Toradol) 15 mg IVPUSH Q6H PRN PRN Reason: Pain Last Admin: 09/16/17 12:50 Dose: 15 mg Nicotine (Habitrol) 21 mg TRDERM ONETIME PRN PRN Reason: Withdrawal Symptoms Pantoprazole Sodium (Protonix) 40 mg PO ACBREAKFAST [facility] Last Admin: 09/19/17 06:19 Dose: 40 mg Sodium Chloride (Saline Flush) 10 ml FLUSH ASDIRECTED PRN PRN Reason: Keep Vein Open Last Admin: 09/10/17 09:20 Dose: 10 ml Discontinued Medications Albuterol/Ipratropium (Duoneb 3.0-0.5 Mg/3 Ml) 3 ml NEB ONETIME ONE Stop: 09/10/17 06:59 Last Admin: 09/10/17 07:11 Dose: 3 ml Cyclobenzaprine HCl (Flexeril) 10 mg PO BEDTIME PRN PRN Reason: Spasms Last Admin: 09/15/17 11:28 Dose: 10 mg Diazepam (Valium) 5 mg IVPUSH ONETIME ONE Stop: 09/10/17 08:26 Last Admin: 09/10/17 08:43 Dose: 5 mg Fentanyl (Sublimaze) 100 mcg IVPUSH ONETIME ONE Stop: 09/10/17 07:55 Last Admin: 09/10/17 08:01 Dose: 100 mcg Fentanyl (Sublimaze) 100 mcg IVPUSH ONETIME ONE Stop: 09/10/17 08:21 Last Admin: 09/10/17 08:24 Dose: 100 mcg Fentanyl (Sublimaze) Confirm Administered Dose 100 mcg .ROUTE .STK-MED ONE Stop: 09/10/17 08:29 Last Admin: 09/10/17 08:46 Dose: Not Given Hydromorphone HCl (Dilaudid) Confirm Administered Dose 1 mg .ROUTE .STK-MED ONE Stop: 09/10/17 09:19 Last Admin: 09/10/17 09:36 Dose: Not Given Hydromorphone HCl (Dilaudid) 1 mg IVPUSH ONETIME ONE Stop: 09/10/17 09:27 Last Admin: 09/10/17 09:15 Dose: 0.5 mg Hydromorphone HCl (Dilaudid) 0.5 mg IVPUSH ONETIME ONE Stop: 09/10/17 10:53 Last Admin: 09/10/17 11:00 Dose: 0.5 mg Sodium Chloride (Normal Saline) 1,000 mls @ 150 mls/hr IV ASDIRECTED [facility] Last Admin: 09/10/17 08:42 Dose: 150 mls/hr Sodium Chloride (Normal Saline) 100 mls @ 60 mls/hr IV ASDIRECTED [facility] Last Admin: 09/10/17 09:20 Dose: 60 mls/hr Influenza Virus Vaccine (Flulaval Quad [id number]) 60 mcg IM .ONCE ONE Stop: 09/13/17 09:01 Iopamidol (Isovue-370 (76%)) 100 ml IVPUSH ONETIME ONE Stop: 09/10/17 08:46 Last Admin: 09/10/17 09:20 Dose: 80 ml Lidocaine/Epinephrine (Xylocaine 1% With Epinephrine 1:100,000) 20 ml INJECT ONETIME ONE Stop: 09/10/17 07:53 Last Admin: 09/10/17 08:13 Dose: 20 ml Lidocaine/Epinephrine (Xylocaine 1% With Epinephrine 1:100,000) Confirm Administered Dose 20 ml .ROUTE .STK-MED ONE Stop: 09/10/17 08:00 Last Admin: 09/10/17 08:13 Dose: Not Given Midazolam HCl (Versed 1 Mg/Ml) 2 mg IVPUSH ONETIME ONE Stop: 09/10/17 07:55 Last Admin: 09/10/17 08:00 Dose: 2 mg Miscellaneous Information (Remove Patch) 0 ea TRDERM DAILY [facility] Last Admin: 09/14/17 18:06 Dose: Not Given Non-Formulary Medication (Omeprazole) 20 mg PO DAILY [facility] Pneumococcal 13-Valent Conj Vacc (Prevnar 13) 0.5 ml IM .ONCE ONE Stop: 09/13/17 09:01 Sodium Chloride (Saline Flush) 10 ml FLUSH ONETIME ONE Stop: 09/10/17 08:46 Last Admin: 09/10/17 09:34 Dose: 10 ml Trimethoprim/Sulfamethoxazole (Septra Ds) 1 tab PO BID [facility] Last Admin: 09/15/17 17:02 Dose: 1 tab Trimethoprim/Sulfamethoxazole (Septra Ds) 1 tab PO BID [facility] Last Admin: 09/17/17 21:18 Dose: 1 tab - Exam General: Alert, Oriented, Cooperative, No Acute Distress Lungs: Normal Respiratory Effort - Problem List & Annotations (1) Emphysema lung SNOMED Code(s): 49332725 Code(s): J43.9 - EMPHYSEMA, UNSPECIFIED Status: Chronic Priority: Medium Current Visit: Yes Qualifiers: Emphysema type: unspecified Qualified Code(s): J43.9 - Emphysema, unspecified (2) Pneumothorax on left SNOMED Code(s): 717939509 Code(s): J93.9 - PNEUMOTHORAX, UNSPECIFIED Status: Resolved Priority: High Current Visit: Yes - Problem List Review Problem List Initiated/Reviewed/Updated: Yes - My Orders Last 24 Hours: My Active Orders 09/18/17 07:41 Chest Tube Management [RC] 04,16,22,10 09/18/17 11:24 Ambulate [RC] ASDIRECTED 09/19/17 07:00 Chest 1V Frontal [CR] Routine - Assessment Assessment:: No air leak and no respiratory variation. - Plan Plan:: Continue waterseal and plan to discontinue the chest tube tomorrow followed by discharge.
--- NOTE | 2017-09-19 08:19 | CR ---
Chest: Portable view of the chest was obtained. Comparison: Prior chest x-ray of 09/15/17. Chest tube has been slightly withdrawn by about 2.5 cm. Increasing density within the left base presumably due to increasing atelectasis. Mild atelectasis is noted within the right lung base. Small apical pneumothorax remains. Subcutaneous air is noted within the left chest wall which has slightly diminished from previous exam. Heart size and mediastinum are stable. Impression: 1. Chest tube slightly withdrawn by about 2.5 cm. 2. Small apical pneumothorax is noted. Decreased subcutaneous air within the left chest wall from prior study. 3. Increasing density within the left lung base most likely representing atelectasis. Diagnostic code #3
[2017-09-19] MEDS: Acetaminophen/HYDROcodone 325-5 MG Tab PO PRN (13:42)
[2017-09-19] MEDS: Cyclobenzaprine 10 MG Tab PO PRN (18:27)
[2017-09-20] MEDS: Ibuprofen 400 MG Tab PO SCH ×2 (00:17→06:15)
[2017-09-20] MEDS: Pantoprazole 40 MG Tab.CR PO SCH (06:15)
--- NOTE | 2017-09-20 09:15 | CR ---
Chest: Frontal view of the chest was obtained. Comparison: Prior chest x-ray of 09/19/17. Small apical pneumothorax is noted. This appears stable from prior exam. Subcutaneous air is noted within the left chest wall which is increased from prior study. Left-sided chest tube remains in place which is similar in location to most recent exam. Atelectasis is noted within both lung bases. Heart size is normal. Tortuous thoracic aorta is seen. No gross abnormality is seen within the bony structures. Impression: 1. Increasing subcutaneous air within the left chest wall. 2. Small apical pneumothorax which is stable from previous exam. 3. Stable position of left-sided chest tube. 3. Bibasilar atelectasis. Diagnostic code #3
--- NOTE | 2017-09-20 12:03 | PCM.PN ---
- General Info Date of Service: 09/20/17 Functional Status: Reports: Pain Controlled, Tolerating Diet, Ambulating, Urinating - Patient Data Vitals - Most Recent: Last Vital Signs Temp 37.2 C 09/19/17 20:15 Pulse 72 09/19/17 20:18 Resp 16 09/19/17 20:15 BP 144/88 H 09/19/17 20:18 Pulse Ox 93 L 09/19/17 20:18 Weight - Most Recent: 87.685 kg I&O - Last 24 Hours: Intake & Output 09/19/17 09/20/17 09/20/17 22:59 06:59 14:59 Intake Total 540 400 Output Total 40 0 Balance 500 400 Med Orders - Current: Current Medications Hydrocodone Bitart/Acetaminophen ([place] 325-5 Mg) 1 tab PO Q4H PRN PRN Reason: Pain Last Admin: 09/19/17 13:42 Dose: 1 tab Cyclobenzaprine HCl (Flexeril) 10 mg PO TID PRN PRN Reason: muscle spasms Last Admin: 09/19/17 18:27 Dose: 10 mg Hydromorphone HCl (Dilaudid) 0.5 mg IVPUSH Q1H PRN PRN Reason: Pain Last Admin: 09/16/17 03:40 Dose: 0.5 mg Ibuprofen (Motrin) 400 mg PO Q8H [facility] Last Admin: 09/20/17 06:15 Dose: 400 mg Ketorolac Tromethamine (Toradol) 15 mg IVPUSH Q6H PRN PRN Reason: Pain Last Admin: 09/16/17 12:50 Dose: 15 mg Nicotine (Habitrol) 21 mg TRDERM ONETIME PRN PRN Reason: Withdrawal Symptoms Pantoprazole Sodium (Protonix) 40 mg PO ACBREAKFAST [facility] Last Admin: 09/20/17 06:15 Dose: 40 mg Sodium Chloride (Saline Flush) 10 ml FLUSH ASDIRECTED PRN PRN Reason: Keep Vein Open Last Admin: 09/10/17 09:20 Dose: 10 ml Discontinued Medications Albuterol/Ipratropium (Duoneb 3.0-0.5 Mg/3 Ml) 3 ml NEB ONETIME ONE Stop: 09/10/17 06:59 Last Admin: 09/10/17 07:11 Dose: 3 ml Cyclobenzaprine HCl (Flexeril) 10 mg PO BEDTIME PRN PRN Reason: Spasms Last Admin: 09/15/17 11:28 Dose: 10 mg Diazepam (Valium) 5 mg IVPUSH ONETIME ONE Stop: 09/10/17 08:26 Last Admin: 09/10/17 08:43 Dose: 5 mg Fentanyl (Sublimaze) 100 mcg IVPUSH ONETIME ONE Stop: 09/10/17 07:55 Last Admin: 09/10/17 08:01 Dose: 100 mcg Fentanyl (Sublimaze) 100 mcg IVPUSH ONETIME ONE Stop: 09/10/17 08:21 Last Admin: 09/10/17 08:24 Dose: 100 mcg Fentanyl (Sublimaze) Confirm Administered Dose 100 mcg .ROUTE .STK-MED ONE Stop: 09/10/17 08:29 Last Admin: 09/10/17 08:46 Dose: Not Given Hydromorphone HCl (Dilaudid) Confirm Administered Dose 1 mg .ROUTE .STK-MED ONE Stop: 09/10/17 09:19 Last Admin: 09/10/17 09:36 Dose: Not Given Hydromorphone HCl (Dilaudid) 1 mg IVPUSH ONETIME ONE Stop: 09/10/17 09:27 Last Admin: 09/10/17 09:15 Dose: 0.5 mg Hydromorphone HCl (Dilaudid) 0.5 mg IVPUSH ONETIME ONE Stop: 09/10/17 10:53 Last Admin: 09/10/17 11:00 Dose: 0.5 mg Sodium Chloride (Normal Saline) 1,000 mls @ 150 mls/hr IV ASDIRECTED [facility] Last Admin: 09/10/17 08:42 Dose: 150 mls/hr Sodium Chloride (Normal Saline) 100 mls @ 60 mls/hr IV ASDIRECTED [facility] Last Admin: 09/10/17 09:20 Dose: 60 mls/hr Influenza Virus Vaccine (Flulaval Quad [id number]) 60 mcg IM .ONCE ONE Stop: 09/13/17 09:01 Iopamidol (Isovue-370 (76%)) 100 ml IVPUSH ONETIME ONE Stop: 09/10/17 08:46 Last Admin: 09/10/17 09:20 Dose: 80 ml Lidocaine/Epinephrine (Xylocaine 1% With Epinephrine 1:100,000) 20 ml INJECT ONETIME ONE Stop: 09/10/17 07:53 Last Admin: 09/10/17 08:13 Dose: 20 ml Lidocaine/Epinephrine (Xylocaine 1% With Epinephrine 1:100,000) Confirm Administered Dose 20 ml .ROUTE .STK-MED ONE Stop: 09/10/17 08:00 Last Admin: 09/10/17 08:13 Dose: Not Given Midazolam HCl (Versed 1 Mg/Ml) 2 mg IVPUSH ONETIME ONE Stop: 09/10/17 07:55 Last Admin: 09/10/17 08:00 Dose: 2 mg Miscellaneous Information (Remove Patch) 0 ea TRDERM DAILY [facility] Last Admin: 09/14/17 18:06 Dose: Not Given Non-Formulary Medication (Omeprazole) 20 mg PO DAILY [facility] Pneumococcal 13-Valent Conj Vacc (Prevnar 13) 0.5 ml IM .ONCE ONE Stop: 09/13/17 09:01 Sodium Chloride (Saline Flush) 10 ml FLUSH ONETIME ONE Stop: 09/10/17 08:46 Last Admin: 09/10/17 09:34 Dose: 10 ml Trimethoprim/Sulfamethoxazole (Septra Ds) 1 tab PO BID [facility] Last Admin: 09/15/17 17:02 Dose: 1 tab Trimethoprim/Sulfamethoxazole (Septra Ds) 1 tab PO BID [facility] Last Admin: 09/17/17 21:18 Dose: 1 tab - Exam Lungs: Other (Subcutaneous air still present over the left chest) Wound/Incisions: Dressing Dry and Intact, Other (Some respiratory variation) - Problem List & Annotations (1) Emphysema lung SNOMED Code(s): 47236177 Code(s): J43.9 - EMPHYSEMA, UNSPECIFIED Status: Chronic Priority: Medium Current Visit: Yes Qualifiers: Emphysema type: unspecified Qualified Code(s): J43.9 - Emphysema, unspecified (2) Pneumothorax on left SNOMED Code(s): 507768726 Code(s): J93.9 - PNEUMOTHORAX, UNSPECIFIED Status: Resolved Priority: High Current Visit: Yes - Problem List Review Problem List Initiated/Reviewed/Updated: Yes - My Orders Last 24 Hours: My Active Orders 09/20/17 12:01 Ready for Discharge [RC] PER UNIT ROUTINE - Assessment Assessment:: Okay for discharge with Heimlich valve. - Plan Plan:: Patient will follow-up at my office in 4 days for chest tube removal.
--- NOTE | 2017-09-20 12:05 | PCM.DCSUM1 ---
Discharge Summary - Hospital Course Free Text/Narrative:: Spontaneous pneumothorax treated with continuous suction until there was respiratory variation. I planned on removing the tube today but decided to keep in place for a few days with a Heimlich valve. Patient wanted to go home and was happy to manage the tube as an outpatient. - Discharge Data Discharge Date: 09/20/17 Discharge Disposition: Home, Self-Care 01 Condition: Good - Discharge Diagnosis/Problem(s) (1) Emphysema lung SNOMED Code(s): 45469747 ICD Code: J43.9 - EMPHYSEMA, UNSPECIFIED Status: Chronic Priority: Medium Current Visit: Yes Qualifiers: Emphysema type: unspecified Qualified Code(s): J43.9 - Emphysema, unspecified (2) Pneumothorax on left SNOMED Code(s): 130149317 ICD Code: J93.9 - PNEUMOTHORAX, UNSPECIFIED Status: Resolved Priority: High Current Visit: Yes - Patient Summary/Data Operative Procedure(s) Performed: Left tube thoracostomy with a 20 Thai straight tube Complications: The chest tube had to be removed and repositioned. Hospital Course: Chest tube change. - Patient Instructions Diet: Usual Diet as Tolerated Activity: No Strenuous Activities Driving: May Drive Today Showering/Bathing: No Tub Bathing/Swimming Wound/Incision Care: Keep Operative Site/Wound Site Clean and Dry Notify Provider of: Fever, Increased Pain - Discharge Plan Home Medications: Home Meds Hydrocodone/Acetaminophen [Hydrocodon-Acetaminophen 5-325] 1 tab PO Q4HR PRN [History] Omeprazole 20 mg PO DAILY 09/10/17 [History] Patient Handouts: Smoking Cessation, Tips for Success Forms: ED Department Discharge Referrals: PCP,None [Primary Care Provider] - Claudy Samayoa MD [Physician] - 09/24/17 (Clinic visit) - Discharge Summary/Plan Comment DC Time >30 min.: No Discharge Summary/Plan Comment: Heimlich valve. Follow-up in my office in 4 days. I will remove the chest tube at that time. - Patient Data Vitals - Most Recent: Last Vital Signs Temp 37.2 C 09/19/17 20:15 Pulse 72 09/19/17 20:18 Resp 16 09/19/17 20:15 BP 144/88 H 09/19/17 20:18 Pulse Ox 93 L 09/19/17 20:18 Weight - Most Recent: 87.685 kg I&O - Last 24 hours: Intake & Output 09/19/17 09/20/17 09/20/17 22:59 06:59 14:59 Intake Total 540 400 Output Total 40 0 Balance 500 400 Med Orders - Current: Current Medications Hydrocodone Bitart/Acetaminophen ([place] 325-5 Mg) 1 tab PO Q4H PRN PRN Reason: Pain Last Admin: 09/19/17 13:42 Dose: 1 tab Cyclobenzaprine HCl (Flexeril) 10 mg PO TID PRN PRN Reason: muscle spasms Last Admin: 09/19/17 18:27 Dose: 10 mg Hydromorphone HCl (Dilaudid) 0.5 mg IVPUSH Q1H PRN PRN Reason: Pain Last Admin: 09/16/17 03:40 Dose: 0.5 mg Ibuprofen (Motrin) 400 mg PO Q8H [facility] Last Admin: 09/20/17 06:15 Dose: 400 mg Ketorolac Tromethamine (Toradol) 15 mg IVPUSH Q6H PRN PRN Reason: Pain Last Admin: 09/16/17 12:50 Dose: 15 mg Nicotine (Habitrol) 21 mg TRDERM ONETIME PRN PRN Reason: Withdrawal Symptoms Pantoprazole Sodium (Protonix) 40 mg PO ACBREAKFAST [facility] Last Admin: 09/20/17 06:15 Dose: 40 mg Sodium Chloride (Saline Flush) 10 ml FLUSH ASDIRECTED PRN PRN Reason: Keep Vein Open Last Admin: 09/10/17 09:20 Dose: 10 ml Discontinued Medications Albuterol/Ipratropium (Duoneb 3.0-0.5 Mg/3 Ml) 3 ml NEB ONETIME ONE Stop: 09/10/17 06:59 Last Admin: 09/10/17 07:11 Dose: 3 ml Cyclobenzaprine HCl (Flexeril) 10 mg PO BEDTIME PRN PRN Reason: Spasms Last Admin: 09/15/17 11:28 Dose: 10 mg Diazepam (Valium) 5 mg IVPUSH ONETIME ONE Stop: 09/10/17 08:26 Last Admin: 09/10/17 08:43 Dose: 5 mg Fentanyl (Sublimaze) 100 mcg IVPUSH ONETIME ONE Stop: 09/10/17 07:55 Last Admin: 09/10/17 08:01 Dose: 100 mcg Fentanyl (Sublimaze) 100 mcg IVPUSH ONETIME ONE Stop: 09/10/17 08:21 Last Admin: 09/10/17 08:24 Dose: 100 mcg Fentanyl (Sublimaze) Confirm Administered Dose 100 mcg .ROUTE .STK-MED ONE Stop: 09/10/17 08:29 Last Admin: 09/10/17 08:46 Dose: Not Given Hydromorphone HCl (Dilaudid) Confirm Administered Dose 1 mg .ROUTE .STK-MED ONE Stop: 09/10/17 09:19 Last Admin: 09/10/17 09:36 Dose: Not Given Hydromorphone HCl (Dilaudid) 1 mg IVPUSH ONETIME ONE Stop: 09/10/17 09:27 Last Admin: 09/10/17 09:15 Dose: 0.5 mg Hydromorphone HCl (Dilaudid) 0.5 mg IVPUSH ONETIME ONE Stop: 09/10/17 10:53 Last Admin: 09/10/17 11:00 Dose: 0.5 mg Sodium Chloride (Normal Saline) 1,000 mls @ 150 mls/hr IV ASDIRECTED [facility] Last Admin: 09/10/17 08:42 Dose: 150 mls/hr Sodium Chloride (Normal Saline) 100 mls @ 60 mls/hr IV ASDIRECTED [facility] Last Admin: 09/10/17 09:20 Dose: 60 mls/hr Influenza Virus Vaccine (Flulaval Quad [id number]) 60 mcg IM .ONCE ONE Stop: 09/13/17 09:01 Iopamidol (Isovue-370 (76%)) 100 ml IVPUSH ONETIME ONE Stop: 09/10/17 08:46 Last Admin: 09/10/17 09:20 Dose: 80 ml Lidocaine/Epinephrine (Xylocaine 1% With Epinephrine 1:100,000) 20 ml INJECT ONETIME ONE Stop: 09/10/17 07:53 Last Admin: 09/10/17 08:13 Dose: 20 ml Lidocaine/Epinephrine (Xylocaine 1% With Epinephrine 1:100,000) Confirm Administered Dose 20 ml .ROUTE .STK-MED ONE Stop: 09/10/17 08:00 Last Admin: 09/10/17 08:13 Dose: Not Given Midazolam HCl (Versed 1 Mg/Ml) 2 mg IVPUSH ONETIME ONE Stop: 09/10/17 07:55 Last Admin: 09/10/17 08:00 Dose: 2 mg Miscellaneous Information (Remove Patch) 0 ea TRDERM DAILY [facility] Last Admin: 09/14/17 18:06 Dose: Not Given Non-Formulary Medication (Omeprazole) 20 mg PO DAILY [facility] Pneumococcal 13-Valent Conj Vacc (Prevnar 13) 0.5 ml IM .ONCE ONE Stop: 09/13/17 09:01 Sodium Chloride (Saline Flush) 10 ml FLUSH ONETIME ONE Stop: 09/10/17 08:46 Last Admin: 09/10/17 09:34 Dose: 10 ml Trimethoprim/Sulfamethoxazole (Septra Ds) 1 tab PO BID [facility] Last Admin: 09/15/17 17:02 Dose: 1 tab Trimethoprim/Sulfamethoxazole (Septra Ds) 1 tab PO BID [facility] Last Admin: 09/17/17 21:18 Dose: 1 tab *Q Meaningful Use (DIS) - VTE *Q VTE Criteria *Q: - Stroke *Q Stroke Criteria *Q: - AMI *Q AMI Criteria *Q:
[2017-09-20] MEDS ORDERED: HYDROmorphone 0.5 MG/0.5 ML SYRINGE IVPUSH PRN (13:15)
== END 2017-09-20 13:30 | disposition home or self-care (01) | DRG 201 ==
LOC: SUPCPDRO 06:48 → JD.ED 06:48 → UNDOADMIN 10:48 → JD.MS 10:48
PROVIDERS: ADMIT Surgery; ATTEND Surgery
PROC: 0W9B30Z Drainage of Left Pleural Cavity with Drainage Device, Percutaneous Approach (ICD-10-PCS; principal; 2017-09-15)
PROC: 0BPLX0Z Removal of Drainage Device from Left Lung, External Approach (ICD-10-PCS; 2017-09-15)
DX: J93.9 Pneumothorax, unspecified (principal); F17.210 Nicotine dependence, cigarettes, uncomplicated; J43.9 Emphysema, unspecified; H54.7 Unspecified visual loss; Z85.820 Personal history of malignant melanoma of skin; Z48.817 Encounter for surgical aftercare following surgery on the skin and subcutaneous tissue
CPT/HCPCS: 32551; 36415; 71045; 71045-26; 71046; 71046-26; 71275; 71275-26; 80053; 84484; 85025; 85379; 87070; 93005; 93010; 94640; 94762; 96361; 96374; 96375; 96376; 99285-25; A9270-GY; J1170; J1885; J2250; J3010; J3360; J7030; J7040; J7050; Q9967

== ENCOUNTER 2017-09-24 17:46 | Emergency (ER) | payer OTHER ==
[2017-09-24] MEDS ORDERED: Sodium Chloride 0.9% 10 ML Syringe FLUSH PRN (18:39)
[2017-09-24] MEDS ORDERED: Morphine 10 MG/ML Syringe IVPUSH ONE ×3 (18:57→20:36)
[2017-09-24] MEDS ORDERED: Midazolam 1 MG/ML 2 ML SDV IVPUSH ONE (18:57)
[2017-09-24] MEDS ORDERED: Lidocaine 1% 30 ML SDV ONE (19:17)
[2017-09-24] MEDS ORDERED: Famotidine 20 MG/2 ML SDV IVPUSH ONE (19:28)
[2017-09-24] MEDS ORDERED: Lidocaine 1% 30 ML SDV INJECT SCH (19:30)
--- NOTE | 2017-09-24 19:56 | EDM.PDOC ---
ED HPI GENERAL MEDICAL PROBLEM - General Chief Complaint: Respiratory Problem Stated Complaint: CHEST TUBE ISSUE Time Seen by Provider: 09/24/17 18:35 Source of Information: Reports: Patient, Old Records History Limitations: Reports: No Limitations - History of Present Illness INITIAL COMMENTS - FREE TEXT/NARRATIVE: 56-year-old male presents for evaluation and treatment of shortness of breath post chest tube removal. Patient was seen in the ER on September 10. He was found to have a spontaneous pneumothorax. Chest tube was placed and he was admitted to the hospital. Discharged on September 20. He is distal with a chest tube with a valve. Patient presented to the clinic today, where he saw Dr. Samayoa. The chest tube was removed. He states he then went out shopping. While he was out he coughed. Reports that he then felt airflow through his incision. Chest Pain Score (Numeric/FACES): 4 - Related Data Allergies Allergy/AdvReac Type Severity Reaction Status Date / Time No Known Allergies Allergy Verified 09/24/17 18:01 Home Meds: Home Meds Hydrocodone/Acetaminophen [Hydrocodon-Acetaminophen 5-325] 1 tab PO Q4HR PRN [History] Omeprazole 20 mg PO DAILY 09/10/17 [History] Past Medical History HEENT History: Reports: Hard of Hearing Other HEENT History: Wears glasses Cardiovascular History: Reports: SOB on Exertion Respiratory History: Reports: Pneumothorax, Other (See Below) Other Respiratory History: spontaneous pneumo; chest tube Gastrointestinal History: Reports: Other (See Below) Other Gastrointestinal History: Patient has acid reflux, nothing medically diagnosed Dermatologic History: Reports: Melanoma - Past Surgical History Dermatological Surgical History: Reports: Skin Biopsy Social & Family History - Family History Family Medical History: Noncontributory Other Oncologic Family History: Patient states dad had cancer, not sure of type - Tobacco Use Smoking Status *Q: Former Smoker Years of Tobacco use: 40 Packs/Tins Daily: 1 Used Tobacco, but Quit: Yes Month Tobacco Last Used: Sep 10 2017 Second Hand Smoke Exposure: No - Caffeine Use Caffeine Use: Reports: Coffee Caffeine Use Comment: Per patient he drinks about 7 20oz cups of coffee per day. Drinks a couple of energy drinks and/or sodas per week as well - Recreational Drug Use Recreational Drug Use: No ED ROS GENERAL - Review of Systems Review Of Systems: ROS reveals no pertinent complaints other than HPI. ED EXAM, GENERAL - Physical Exam Exam: See Below Exam Limited By: No Limitations General Appearance: Alert, WD/WN, Mild Distress Nose: Normal Inspection Throat/Mouth: Normal Inspection, Normal Voice, No Airway Compromise Respiratory/Chest: Decreased Breath Sounds (left) Cardiovascular: Normal Peripheral Pulses, Regular Rate, Rhythm, Other ( subcutaneous emphysema appreciated to the left chest) Neurological: Alert, Oriented, Normal Cognition Psychiatric: Normal Affect, Normal Mood Skin Exam: Warm, Dry, Normal Color Course - Vital Signs Last Recorded V/S: Last Vital Signs Temp 37.1 C 09/24/17 17:55 Pulse 79 09/24/17 17:55 Resp 20 09/24/17 17:55 BP 133/75 09/24/17 17:55 Pulse Ox 91 L 09/24/17 17:55 - Orders/Labs/Meds Orders: Active Orders 24 hr Category Date Time Status Peripheral IV Care [RC] . DIRECTED Care 09/24/17 18:39 Active Chest 1V Frontal [CR] Stat Exams 09/24/17 18:23 Taken Chest 1V Frontal [CR] Stat Exams 09/24/17 19:53 Taken CBC WITH MANUAL DIFF [HEME] Stat Lab 09/24/17 19:54 Ordered CMP [COMPREHENSIVE METABOLIC PN,CMP] [CHEM] Stat Lab 09/24/17 19:54 Ordered Lidocaine 1% [Xylocaine-MPF 1%] Med 09/24/17 19:30 Active 30 ml INJECT STAT Sodium Chloride 0.9% [Saline Flush] Med 09/24/17 18:39 Active 10 ml FLUSH ASDIRECTED PRN Peripheral IV Insertion Adult [OM.PC] Routine Oth 09/24/17 18:39 Ordered Medication Orders Lidocaine HCl (Xylocaine-Mpf 1%) 30 ml INJECT STAT [facility] Last Admin: 09/24/17 19:35 Dose: 30 ml Sodium Chloride (Saline Flush) 10 ml FLUSH ASDIRECTED PRN PRN Reason: Keep Vein Open Last Admin: 09/24/17 19:15 Dose: 10 ml Meds: Medications Generic Name Dose Route Start Last Admin Trade Name Freq PRN Reason Stop Dose Admin Lidocaine HCl 30 ml 09/24/17 19:30 09/24/17 19:35 Xylocaine-Mpf 1% INJECT 30 ml STAT [facility] Administration Sodium Chloride 10 ml 09/24/17 18:39 09/24/17 19:15 Saline Flush FLUSH 10 ml ASDIRECTED PRN Administration Keep Vein Open Discontinued Medications Generic Name Dose Route Start Last Admin Trade Name Brittney PRN Reason Stop Dose Admin Famotidine 20 mg 09/24/17 19:28 09/24/17 19:35 Pepcid IVPUSH 09/24/17 19:29 20 mg ONETIME ONE Administration Hydromorphone HCl 1 mg 09/24/17 20:30 Dilaudid IVPUSH 09/24/17 20:31 ONETIME ONE Lidocaine HCl Confirm 09/24/17 19:17 09/24/17 19:54 Xylocaine-Mpf 1% Administered 09/24/17 19:18 Not Given Dose 30 ml .ROUTE .STK-MED ONE Midazolam HCl 1 mg 09/24/17 18:57 09/24/17 19:05 Versed 1 Mg/Ml IVPUSH 09/24/17 18:58 1 mg ONETIME ONE Administration Morphine Sulfate 5 mg 09/24/17 18:57 09/24/17 19:04 Morphine IVPUSH 09/24/17 18:58 5 mg ONETIME ONE Administration Morphine Sulfate 5 mg 09/24/17 19:10 09/24/17 19:10 Morphine IVPUSH 09/24/17 19:11 5 mg ONETIME ONE Administration Morphine Sulfate 5 mg 09/24/17 20:36 Morphine IVPUSH 09/24/17 20:37 ONETIME ONE - Radiology Interpretation Free Text/Narrative:: One view chest x-ray shows a greater than 50% pneumothorax to the right lung. Subcutaneous emphysema appreciated. One view chest x-ray post chest tube insertion shows an inflated left lung. good chest tube placement. - Re-Assessments/Exams Free Text/Narrative Re-Assessment/Exam: 09/24/17 20:42 Dr. Samayoa was called immediately after it was found he had a another spontaneous pneumothorax. He presented to the ER where chest tube was placed. See his notes for complete details. Patient is currently requesting some more medication for pain. Will give him initial [address] Samayoa asked I transfer the patient to [place]. He feels he needs a VATS procedure. Patient is to go to [facility] in [place]. I spoke with cardiovascular surgeon Dr. Multani. He asked that we admit to the hospitalist. I spoke with Dr. Morris at [facility] in [place]. He agrees to accept the patient. Patient will be transferred by ambulance to [facility]. Dr. morris accepting. Departure - Departure Time of Disposition: 20:44 Disposition: Home, Self-Care 01 Condition: Fair Clinical Impression: Recurrent spontaneous pneumothorax, Bleb, lung - Discharge Information Referrals: PCP,None [Primary Care Provider] - Forms: ED Department Discharge Additional Instructions: Patient will be transported by ground ambulance to [facility]. Dr. Morris accepting. He will be a direct admission. - My Orders Last 24 Hours: My Active Orders 09/24/17 18:39 Peripheral IV Care [RC] . DIRECTED Sodium Chloride 0.9% [Saline Flush] 10 ml FLUSH ASDIRECTED PRN Peripheral IV Insertion Adult [OM.PC] Routine 09/24/17 19:53 Chest 1V Frontal [CR] Stat 09/24/17 19:54 CBC WITH MANUAL DIFF [HEME] Stat CMP [COMPREHENSIVE METABOLIC PN,CMP] [CHEM] Stat - Assessment/Plan Last 24 Hours: My Active Orders 09/24/17 18:39 Peripheral IV Care [RC] . DIRECTED Sodium Chloride 0.9% [Saline Flush] 10 ml FLUSH ASDIRECTED PRN Peripheral IV Insertion Adult [OM.PC] Routine 09/24/17 19:53 Chest 1V Frontal [CR] Stat 09/24/17 19:54 CBC WITH MANUAL DIFF [HEME] Stat CMP [COMPREHENSIVE METABOLIC PN,CMP] [CHEM] Stat
--- NOTE | 2017-09-24 20:28 | PCM.CONS ---
H&P History of Present Illness - General Date of Service: 09/24/17 Admit Problem/Dx: Recurrent left pneumothorax Source of Information: Patient, Provider History Limitations: Reports: No Limitations - History of Present Illness Initial Comments - Free Text/Narative: 56-year-old patient of mine was recently discharged after having a inpatient left chest tube in place for about 10 days. He was discharged with a Heimlich valve for 4 days and returned to the clinic today. His chest x-ray showed almost complete lung expansion with little subcutaneous air and no significant air within the collection on the Heimlich valve. His chest tube was pulled in the clinic and he did well shopping throughout the day until he experienced a severe coughing episode and then noticed air leaking from his old chest tube site. He presented to the emergency room where a stat chest x-ray was performed and showed a almost complete collapse of the left lung with a [id number] mediastinal shift. I was asked to see him for a chest tube. Chest Pain Score (Numeric/FACES): 4 - Related Data Allergies/Adverse Reactions: Allergies Allergy/AdvReac Type Severity Reaction Status Date / Time No Known Allergies Allergy Verified 09/24/17 18:01 Home Medications: Home Meds Hydrocodone/Acetaminophen [Hydrocodon-Acetaminophen 5-325] 1 tab PO Q4HR PRN [History] Omeprazole 20 mg PO DAILY 09/10/17 [History] Past Medical History HEENT History: Reports: Hard of Hearing Other HEENT History: Wears glasses Cardiovascular History: Reports: SOB on Exertion Respiratory History: Reports: Pneumothorax, Other (See Below) Other Respiratory History: spontaneous pneumo; chest tube Gastrointestinal History: Reports: Other (See Below) Other Gastrointestinal History: Patient has acid reflux, nothing medically diagnosed Dermatologic History: Reports: Melanoma - Past Surgical History Dermatological Surgical History: Reports: Skin Biopsy Social & Family History - Family History Family Medical History: Noncontributory Other Oncologic Family History: Patient states dad had cancer, not sure of type - Tobacco Use Smoking Status *Q: Former Smoker Years of Tobacco use: 40 Packs/Tins Daily: 1 Used Tobacco, but Quit: Yes Month Tobacco Last Used: Sep 10 2017 Second Hand Smoke Exposure: No - Caffeine Use Caffeine Use: Reports: Coffee Caffeine Use Comment: Per patient he drinks about 7 20oz cups of coffee per day. Drinks a couple of energy drinks and/or sodas per week as well - Recreational Drug Use Recreational Drug Use: No H&P Review of Systems - Review of Systems: Review Of Systems: ROS reveals no pertinent complaints other than HPI. Pulmonary: Reports: Shortness of Breath Exam - Exam Exam: See Below - Vital Signs Vital Signs: Last Vital Signs Temp 37.1 C 09/24/17 17:55 Pulse 79 09/24/17 17:55 Resp 20 09/24/17 17:55 BP 133/75 09/24/17 17:55 Pulse Ox 91 L 09/24/17 17:55 Weight: 88.451 kg - Exam Quality Assessment: Supplemental Oxygen General: Alert, Oriented, Cooperative HEENT: EOMI, Hearing Intact Neck: Supple, Trachea Midline Lungs: Decreased Breath Sounds (Left chest), Other (Subcutaneous air) Cardiovascular: Regular Rate, Regular Rhythm, Normal S1, Normal S2 GI/Abdominal Exam: Non-Tender (Male) Exam: Deferred Rectal (Males) Exam: Deferred Extremities: Non-Tender Skin: Warm, Dry, Intact Psychiatric: Alert, Normal Affect, Normal Mood Consult PN Assessment/Plan (1) Recurrent spontaneous pneumothorax SNOMED Code(s): 73217309 Code(s): J93.83 - OTHER PNEUMOTHORAX Priority: High Current Visit: Yes Onset Date: ~09/24/17 Assessment:: Patient has experienced a known complication of a pneumothorax which is recurrence. Especially in the setting of emphysematous lungs and associated bleb and bullous disease. A conservative run of inpatient chest tube suction followed by Heimlich valve placement was unsuccessful. He needs a left tube thoracostomy. He is a candidate for VATS closure of the air leak with pleurodesis. Problem List Initiated/Reviewed/Updated: Yes My Orders Last 24 Hours: My Active Orders 09/24/17 19:30 Lidocaine 1% [Xylocaine-MPF 1%] 30 ml INJECT STAT Plan: Left chest tube. Transfer to [facility] for thoracic surgical consultation regarding VATS fistula closure and pleurodesis.
[2017-09-24] MEDS ORDERED: HYDROmorphone 1 MG/ML Syringe IVPUSH ONE (20:30)
--- NOTE | 2017-09-24 20:32 | PCM.OPNOTE ---
- General Post-Op/Procedure Note Date of Surgery/Procedure: 09/24/17 Operative Procedure(s): Left tube thoracostomy Findings: Intrapleural air and subcutaneous air within the left chest Pre Op Diagnosis: Recurrent left pneumothorax Post-Op Diagnosis: Same Anesthesia Technique: Local, Moderate Sedation Primary Surgeon: Claudy Samayoa Pathology: None EBL in mLs: 1 Complications: None Condition: Good Free Text/Narrative:: After placement of the patient in the right lateral decubitus position with monitoring the area of the tube insertion site was prepped with Betadine and then draped sterilely. Approximately 20 mL total of 1% lidocaine was infused into the skin and subcutaneous tissues and the fourth intercostal space. A 15 blade was used to make a fresh incision through the skin and subcutaneous tissues and through the intercostal space. A Kathy clamp was used to gently spread the musculature. There was a aguilar of air. A 28 [place] chest tube was inserted through this surgical incision and secured to the skin with an 0 silk suture. The patient was immediately placed on 20 cm of suction and water seal. Gauze and tape were used for the dressing. There were no procedural complications. The chest x-ray showed complete expansion of the lung with the being tube slightly tortuous in the left chest.
--- NOTE | 2017-09-25 07:25 | CR ---
Chest: Portable view of the chest was obtained. Comparison: Prior chest x-ray of 09/24/17. Chest tube has been removed. Large left-sided pneumothorax is now noted. Subcutaneous air remains within the chest. Heart is enlarged. Tortuous thoracic aorta is seen. Bony structures are osteopenic. Impression: 1. Removal of left chest tube with large left sided pneumothorax. 2. Continuing subcutaneous air within the left chest. 3. Other stable findings. Diagnostic code #5
--- NOTE | 2017-09-25 07:25 | CR ---
Chest: Frontal view of the chest was obtained utilizing portable technique. Comparison: Prior chest x-ray performed earlier on the same date (6:20 PM). Left chest tube has been placed. Previous large pneumothorax has been evacuated. Subcutaneous air remains within the left chest wall. Heart size is enlarged. Tortuous thoracic aorta is again noted. Impression: 1. Left chest tube has been placed. Previous large left-sided pneumothorax has been evacuated. 2. Other incidental findings within the chest are stable. Diagnostic code #3
== END 2017-09-24 20:00 | disposition home or self-care (01) ==
LOC: JD.ED 17:46
DX: J93.83 Other pneumothorax (principal); J43.9 Emphysema, unspecified; Z79.899 Other long term (current) drug therapy; Z87.891 Personal history of nicotine dependence
CPT/HCPCS: 32551; 36415; 71045; 85025; 96374; 99285; J2250; J2270; J7050; 96375; 96376

== ENCOUNTER 2019-04-07 04:50 | Emergency (ER) | payer OTHER ==
--- NOTE | 2019-04-07 06:19 | EDM.PDOC ---
ED HPI GENERAL MEDICAL PROBLEM - General Chief Complaint: Chest Pain Stated Complaint: DIFFICULTY BREATHING/HEART ATTACK 6 WEEKS AGO Time Seen by Provider: 04/07/19 05:03 Source of Information: Reports: Patient, Family History Limitations: Reports: No Limitations - History of Present Illness INITIAL COMMENTS - FREE TEXT/NARRATIVE: The patient presents with shortness of breath, chest pain and a 5 pound weight gain since yesterday. The patient has a complex history. About 6 weeks ago he had a massive PR and he was seen in [facility] and flown to [place]. He was very sick there and he was transferred to [place] where he was in the Hospital for about 2 weeks and he was on a balloon pump at one time. He returned here to [place] at the end of February and saw Fara Arbams in the clinic. She did a CT angio because he had more shortness of breath and he had a PE. He was put on Eliquis and kept on his plavix. He came back to the ER March 12 and he was sent to [facility] in [place]. He was released a few days later. He was seen by his straight cutter machine yesterday and he put him back on the plavix. This morning at 2am he woke up with some chest pain and shortness of breath. He weighed himself and he was up 5 pounds. He did not eat more food then normal and not more salt. He has no fever, chills, cough, chest pain, abdominal pain, or vomiting. He does have some nausea. Onset: Gradual Duration: Hour(s): (2am) Location: Reports: Chest Quality: Reports: Pressure Severity: Mild Improves with: Reports: None Worsens with: Reports: None Associated Symptoms: Reports: Chest Pain, Shortness of Breath. Denies: Confusion, Cough, Fever/Chills, Headaches, Nausea/Vomiting Chest Pain Score (Numeric/FACES): 3 - Related Data Allergies Allergy/AdvReac Type Severity Reaction Status Date / Time No Known Allergies Allergy Verified 03/12/19 03:34 Home Meds: Home Meds Albuterol/Ipratropium [DuoNeb 3.0-0.5 MG/3 ML] 1 unit INH QID PRN 04/07/19 [ History] Apixaban [Eliquis] 5 mg PO BID 04/07/19 [History] Arformoterol [Brovana] 15 mcg INH BID 04/07/19 [History] Clopidogrel [Plavix] 75 mg PO DAILY 04/07/19 [History] Furosemide [Lasix] 20 mg PO DAILY 04/07/19 [History] Furosemide [Lasix] 40 mg PO DAILY #60 tab 04/07/19 [Rx] LORazepam 0.5 mg PO Q8HR PRN 04/07/19 [History] Metoprolol Succinate [Toprol XL] 25 mg PO DAILY 04/07/19 [History] Pantoprazole Sodium 40 mg PO DAILY 04/07/19 [History] Potassium Chloride 20 meq PO BEDTIME 04/07/19 [History] Valsartan 20 mg PO DAILY 04/07/19 [History] atorvaSTATin Calcium [Atorvastatin Calcium] 80 mg PO BEDTIME 04/07/19 [History] Past Medical History HEENT History: Reports: Hard of Hearing, Impaired Vision Other HEENT History: Wears glasses Cardiovascular History: Reports: High Cholesterol, PR, SOB on Exertion, Stents Respiratory History: Reports: Pneumonia, Recurrent, Pneumothorax, SOB, Other ( See Below) Other Respiratory History: spontaneous pneumo; chest tube Gastrointestinal History: Reports: GERD Other Gastrointestinal History: Patient has acid reflux, nothing medically diagnosed Musculoskeletal History: Reports: Back Pain, Chronic Psychiatric History: Reports: Anxiety Dermatologic History: Reports: Melanoma - Infectious Disease History Infectious Disease History: Reports: None - Past Surgical History Cardiovascular Surgical History: Reports: Other (See Below) Other Cardiovascular Surgeries/Procedures: stent Musculoskeletal Surgical History: Reports: None Dermatological Surgical History: Reports: Skin Biopsy Social & Family History - Family History Family Medical History: Noncontributory Other Oncologic Family History: Patient states dad had cancer, not sure of type - Tobacco Use Smoking Status *Q: Former Smoker Used Tobacco, but Quit: Yes Month/Year Tobacco Last Used: 02/27 - Caffeine Use Caffeine Use: Reports: Coffee Caffeine Use Comment: Per patient he drinks about 7 20oz cups of coffee per day. Drinks a couple of energy drinks and/or sodas per week as well ED ROS GENERAL - Review of Systems Review Of Systems: See Below Constitutional: Reports: No Symptoms HEENT: Reports: No Symptoms Respiratory: Reports: Shortness of Breath. Denies: Cough Cardiovascular: Reports: Chest Pain Endocrine: Reports: No Symptoms GI/Abdominal: Reports: No Symptoms : Reports: No Symptoms Musculoskeletal: Reports: No Symptoms ED EXAM, GENERAL - Physical Exam Exam: See Below Exam Limited By: No Limitations General Appearance: Alert, No Apparent Distress Ears: Normal External Exam Nose: Normal Inspection Head: Atraumatic, Normocephalic Neck: Normal Inspection Respiratory/Chest: No Respiratory Distress, Rales (Mild at the bases) Cardiovascular: Regular Rate, Rhythm, No Edema, No Murmur GI/Abdominal: Soft, Non-Tender, No Organomegaly, No Mass Back Exam: Normal Inspection Extremities: Normal Inspection Neurological: Alert, Oriented, No Motor/Sensory Deficits EKG INTERPRETATION EKG Date: 04/07/19 Time: 05:10 Rhythm: NSR Rate (Beats/Min): 91 Eads: Normal P-Wave: Present QRS: Normal ST-T: Normal QT: Normal EKG Interpretation Comments: Q waves in the anterior leads Course - Vital Signs Last Recorded V/S: Last Vital Signs Temp 98.1 F 04/07/19 05:07 Pulse 76 04/07/19 06:20 Resp 0 L 04/07/19 06:20 BP 101/77 04/07/19 06:20 Pulse Ox 92 L 04/07/19 06:20 - Orders/Labs/Meds Orders: Active Orders 24 hr Category Date Time Status EKG Documentation Completion [RC] ASDIRECTED Care 04/07/19 05:31 Active Chest 1V Frontal [CR] Stat Exams 04/07/19 05:30 Taken EKG 12 Lead [EK] Stat Ther 04/07/19 05:30 Ordered Labs: Laboratory Tests 04/07/19 04/07/19 04/07/19 Range/Units 05:14 05:14 05:14 WBC 5.21 (4.23-9.07) K/mm3 RBC 3.55 L (4.63-6.08) M/mm3 Hgb 10.8 L D (13.7-17.5) gm/L Hct 34.1 L (40.1-51.0) % MCV 96.1 H (79.0-92.2) fl MCH 30.4 (25.7-32.2) pg MCHC 31.7 L (32.2-35.5) g/dl RDW Std Deviation 47.0 H (35.1-43.9) fL Plt Count 203 (163-337) K/mm3 MPV 10.1 (9.4-12.3) fl Neutrophils % (Manual) 75 H (40-60) % Band Neutrophils % 2 (0-10) % Lymphocytes % (Manual) 16 L (20-40) % Atypical Lymphs % 0 % Monocytes % (Manual) 3 (2-10) % Eosinophils % (Manual) 4 (0.8-7.0) % Basophils % (Manual) 0 L (0.2-1.2) Platelet Estimate Adequate Plt Morphology Comment See note Hypochromasia 1+ slight Anisocytosis 2+ moderate Microcytosis 1+ slight Macrocytosis 2+ moderate RBC Morph Comment Not Reportable Sodium 149 H (136-145) mEq/L Potassium 4.8 (3.5-5.1) mEq/L Chloride 114 H (98-107) mEq/L Carbon Dioxide 27 (21-32) mEq/L Anion Gap 12.8 (5-15) BUN 17 (7-18) mg/dL Creatinine 1.6 H (0.7-1.3) mg/dL Est Cr Clr Drug Dosing 52.60 mL/min Estimated GFR (MDRD) 45 (>60) mL/min BUN/Creatinine Ratio 10.6 L (14-18) Glucose 98 (74-106) mg/dL Calcium 9.3 (8.5-10.1) mg/dL Total Bilirubin 0.4 (0.2-1.0) mg/dL AST 23 (15-37) U/L ALT 34 (16-63) U/L Alkaline Phosphatase 58 (46-116) U/L Troponin I 0.037 (0.00-0.056) ng/mL NT-Pro-B Natriuret Pep 6940 H (0-125) pg/mL Total Protein 6.4 (6.4-8.2) g/dl Albumin 3.2 L (3.4-5.0) g/dl Globulin 3.2 gm/dL Albumin/Globulin Ratio 1.0 (1-2) - Re-Assessments/Exams Free Text/Narrative Re-Assessment/Exam: 04/07/19 06:21 I ordered an IV saline lock, EKG, CXR, and labs. 04/07/19 06:57 His Hgb is low at 10.8 which is up from prior. His Na is elevated at 149. His creatinine is elevated at 1.6. His troponin is negative. His BNP is elevated at 6940. I called [facility] in [place] and talked with Dr Rivera and he agreed we should go up on his lasix and they should see him in the clinic within a week. Departure - Departure Time of Disposition: 07:00 Disposition: Home, Self-Care 01 Condition: Good Clinical Impression: Congestive heart failure Qualifiers: Heart failure type: unspecified Heart failure chronicity: acute on chronic Qualified Code(s): I50.9 - Heart failure, unspecified Chest pain Qualifiers: Chest pain type: unspecified Qualified Code(s): R07.9 - Chest pain, unspecified Prescriptions: Furosemide [Lasix] 40 mg PO DAILY #60 tab Referrals: PCP,Unknown [Primary Care Provider] - Forms: ED Department Discharge Additional Instructions: Take lasix 40mg or 2 pills daily. Keep taking the rest of your medicines as prescribed. Follow up with the cardiology clinic at [facility] within a week. Call today and let them Dr Rivera said you should be seen. Please return if you are worse. - My Orders Last 24 Hours: My Active Orders 04/07/19 05:30 Chest 1V Frontal [CR] Stat EKG 12 Lead [EK] Stat 04/07/19 05:31 EKG Documentation Completion [RC] ASDIRECTED - Assessment/Plan Last 24 Hours: My Active Orders 04/07/19 05:30 Chest 1V Frontal [CR] Stat EKG 12 Lead [EK] Stat 04/07/19 05:31 EKG Documentation Completion [RC] ASDIRECTED
--- NOTE | 2019-04-07 07:48 | CR ---
Chest: Portable view of the chest was obtained. Comparison: Previous chest x-ray of 03/12/19. Heart is slightly enlarged. Emphysematous change is noted. No definite acute parenchymal change is seen within either lung. Bony structures are grossly intact. Impression: 1. Stable cardiomegaly. Emphysematous change. 2. No acute intrathoracic process is definitely seen. Diagnostic code #2
== END 2019-04-07 07:45 | disposition home or self-care (01) ==
LOC: JD.ED 04:50
DX: I50.9 Heart failure, unspecified (principal); E78.00 Pure hypercholesterolemia, unspecified; I25.2 Old myocardial infarction; K21.9 Gastro-esophageal reflux disease without esophagitis; F41.9 Anxiety disorder, unspecified; Z79.02 Long term (current) use of antithrombotics/antiplatelets; Z79.01 Long term (current) use of anticoagulants; Z79.899 Other long term (current) drug therapy; Z87.891 Personal history of nicotine dependence
CPT/HCPCS: 36415; 71045; 71045-26; 80053; 83880; 84484; 85007; 85027; 93005; 99285-25

== ENCOUNTER 2019-05-04 08:49 | Emergency (ER) | payer OTHER ==
[2019-05-04] MEDS ORDERED: Furosemide 40 MG/4 ML VIAL IVPUSH ONE (09:11)
[2019-05-04] MEDS ORDERED: Sodium Chloride 0.9% 10 ML Syringe FLUSH PRN (09:13)
--- NOTE | 2019-05-04 09:17 | EDM.PDOC ---
ED HPI GENERAL MEDICAL PROBLEM - General Chief Complaint: Chest Pain Stated Complaint: CHEST PAIN,SOB Time Seen by Provider: 05/04/19 09:11 Source of Information: Reports: Patient History Limitations: Reports: No Limitations - History of Present Illness INITIAL COMMENTS - FREE TEXT/NARRATIVE: 58-year-old male presents to the ED with left lower anterior chest pain of perhaps a week's duration gradually worsening over the last 3 days. There is some Tums start sharp stabbing pleuritic component to the pain. Cough started today which is nonproductive. He wakes up with shortness of breath the last 3 mornings often fairly early in the morning. Noted fever. Appetite remains fair. Cough is nonproductive. Patient has a history of myocardial infarction in February 19 of this year. He was in [facility] and was flown to [facility] for treatment. He received 1 stent placement and then sent to [facility] for more definitive management. Complicated by multiple pulmonary emboli. He is therefore on Plavix and Eliquis. States he was never diagnosed with a DVT. A few weeks ago he was sent to [place] and states he lost 16 pounds well there due to vigorous diuresis due to fluid buildup in his lungs. [place]'s have remained the same since discharge from hospital in [place]. He takes Lasix 20 mg one day and 40 mg the next. Onset: Gradual Onset Date: 04/30/19 (Actually worsening dyspnea especially waking him up at night i.e. orthopnea and PND over the last week but worse the last 3 days.) Duration: Day(s):, Getting Worse, Waxing/Waning Location: Reports: Chest (Pleuritic component to the left lower chest wall.), Other (Has developed a nonproductive cough for the last 24 hours) Quality: Reports: Other Severity: Moderate (Shortness of breath or dyspnea. Sats only 91% at rest.) Improves with: Reports: Rest Worsens with: Reports: Movement (And sitting up. Movement walking) Context: Denies: Activity, Exercise ( or lying down.), Lifting, Sick Contact, Trauma Associated Symptoms: Reports: Chest Pain (Left lower anterior chest), Cough, Malaise, Shortness of Breath. Denies: Confusion, cough w sputum, Fever/Chills, Headaches, Loss of Appetite, Nausea/Vomiting, Rash, Seizure, Syncope, Weakness Treatments [employer]: Reports: Other (see below) (No change in his medications the last 3 weeks.) Chest Pain Score (Numeric/FACES): 3 - Related Data Allergies Allergy/AdvReac Type Severity Reaction Status Date / Time No Known Allergies Allergy Verified 03/12/19 03:34 Home Meds: Home Meds Albuterol/Ipratropium [DuoNeb 3.0-0.5 MG/3 ML] 1 unit INH QID PRN 04/07/19 [ History] Apixaban [Eliquis] 5 mg PO BID 04/07/19 [History] Arformoterol [Brovana] 15 mcg INH BID 04/07/19 [History] Clopidogrel [Plavix] 75 mg PO DAILY 04/07/19 [History] Furosemide [Lasix] 20 mg PO DAILY 04/07/19 [History] LORazepam 0.5 mg PO Q8HR PRN 04/07/19 [History] Metoprolol Succinate [Toprol XL] 25 mg PO DAILY 04/07/19 [History] Pantoprazole Sodium 40 mg PO DAILY 04/07/19 [History] Potassium Chloride 20 meq PO BEDTIME 04/07/19 [History] Valsartan 20 mg PO DAILY 04/07/19 [History] atorvaSTATin Calcium [Atorvastatin Calcium] 80 mg PO BEDTIME 04/07/19 [History] Arformoterol [Brovana] 1 puff INH BID #1 neb 05/04/19 [Rx] Furosemide [Lasix] 40 mg PO MOWEFR 05/04/19 [History] Spironolactone [Aldactone] 25 mg PO BID #30 tab 05/04/19 [Rx] Past Medical History HEENT History: Reports: Hard of Hearing, Impaired Vision Other HEENT History: Wears glasses Cardiovascular History: Reports: High Cholesterol, [place], SOB on Exertion, Stents Respiratory History: Reports: Pneumonia, Recurrent, Pneumothorax, SOB, Other ( See Below) Other Respiratory History: spontaneous pneumo; chest tube Gastrointestinal History: Reports: GERD Other Gastrointestinal History: Patient has acid reflux, nothing medically diagnosed Musculoskeletal History: Reports: Back Pain, Chronic Psychiatric History: Reports: Anxiety Dermatologic History: Reports: Melanoma - Infectious Disease History Infectious Disease History: Reports: None - Past Surgical History Cardiovascular Surgical History: Reports: Other (See Below) Other Cardiovascular Surgeries/Procedures: stent Musculoskeletal Surgical History: Reports: None Dermatological Surgical History: Reports: Skin Biopsy Social & Family History - Family History Family Medical History: Noncontributory Other Oncologic Family History: Patient states dad had cancer, not sure of type - Caffeine Use Caffeine Use: Reports: Coffee Caffeine Use Comment: Per patient he drinks about 7 20oz cups of coffee per day. Drinks a couple of energy drinks and/or sodas per week as well - Living Situation & Occupation Living situation: Reports: Single Occupation: Employed ED ROS GENERAL - Review of Systems Review Of Systems: See Below Constitutional: Reports: Malaise, Weakness, Fatigue, Decreased Appetite, Weight Loss, Other (Disrupted sleep pattern.). Denies: Fever, Chills HEENT: Reports: No Symptoms Respiratory: Reports: Shortness of Breath, Wheezing, Pleuritic Chest Pain, Cough (Some component of pleuritic chest pain left lower chest.). Denies: Sputum, Hemoptysis ( Nonproductive) Cardiovascular: Reports: Chest Pain (Left lower anterior lateral chest pain), Dyspnea on Exertion (Paroxysmal nocturnal dyspnea.), Orthopnea, Other. Denies: Blood Pressure Problem, Claudication, Edema, Lightheadedness Endocrine: Reports: Fatigue GI/Abdominal: Reports: No Symptoms : Reports: Frequency, Other (Nocturia 2 or 3.) Musculoskeletal: Reports: Back Pain ( No enlarged prostate.), Joint Pain (These hips and low back at times.) Skin: Reports: Bruising (Bruises fairly easily because he is on Eliquis and Plavix.) Neurological: Reports: No Symptoms Psychiatric: Reports: No Symptoms Hematologic/Lymphatic: Reports: No Symptoms Immunologic: Reports: No Symptoms ED EXAM, GENERAL - Physical Exam Exam: See Below Exam Limited By: No Limitations General Appearance: Alert, WD/WN, Mild Distress, Other (Temperature 36.7. Pulse 93 and sinus. Respiratory was 18 BP 08/25/81 sets drifted to) Eye Exam: Bilateral Eye: Normal Inspection (No sclerae icterus.) Throat/Mouth: Normal Lips, Normal Oropharynx Head: Atraumatic, Normocephalic Neck: Normal Inspection, Supple, Non-Tender, Full Range of Motion. No: Carotid Bruit, Lymphadenopathy (L), Lymphadenopathy (R) Respiratory/Chest: No Respiratory Distress, No Accessory Muscle Use, Chest Non- Tender, Rales (uspect atelectasis with some rales. Rales right base as well.). No: Lungs Clear, Normal Breath Sounds, Respiratory Distress, Crackles, Wheezing , Stridor, Pleural Rub, Retractions, Splinting Cardiovascular: Regular Rate, Rhythm, No Edema, No Gallop, No Murmur, No Rub Peripheral Pulses: 2+: Posterior Tibial (L), Posterior Tibial (R), Dorsalis Pedis (L), Dorsalis Pedis (R) GI/Abdominal: Normal Bowel Sounds, Soft, Non-Tender, No Organomegaly, No Abnormal Bruit, No Mass, Pelvis Stable Back Exam: Normal Inspection, Full Range of Motion. No: CVA Tenderness (L), CVA Tenderness (R) Extremities: Normal Inspection, Normal Range of Motion, Non-Tender Neurological: Alert, Oriented, CN II-XII Intact, Normal Cognition Psychiatric: Normal Mood (Mildly anxious.), Anxious Skin Exam: Warm, Dry, Intact, Normal Color, No Rash EKG INTERPRETATION EKG Date: 05/04/19 Time: 08:53 Rhythm: NSR Rate (Beats/Min): 95 [place]: Normal P-Wave: Enlarged (Consider left atrial hypertrophy pattern.) QRS: Other (There are Q waves leads V1 to V3 compatible with an old anteroseptal myocardial infarction. Decreased voltage extremity leads.) ST-T: Other (Diffuse repolarization abnormality.) EKG Interpretation Comments: Abnormal ECG. Course - Vital Signs Last Recorded V/S: Last Vital Signs Temp 36.7 C 05/04/19 08:55 Pulse 93 05/04/19 08:55 Resp 18 05/04/19 08:55 BP 114/82 05/04/19 08:55 Pulse Ox 95 05/04/19 08:55 - Orders/Labs/Meds Orders: Active Orders 24 hr Category Date Time Status EKG Documentation Completion [RC] STAT Care 05/04/19 09:12 Active Oxygen Therapy [RC] ASDIRECTED Care 05/04/19 09:13 Active Peripheral IV Care [RC] . DIRECTED Care 05/04/19 09:14 Active Sodium Chloride 0.9% [Saline Flush] Med 05/04/19 09:13 Active 10 ml FLUSH ASDIRECTED PRN Peripheral IV Insertion Adult [OM.PC] Stat Oth 05/04/19 09:14 Ordered Medication Orders Sodium Chloride (Saline Flush) 10 ml FLUSH ASDIRECTED PRN PRN Reason: Keep Vein Open Last Admin: 05/04/19 09:26 Dose: 10 ml Labs: Laboratory Tests 05/04/19 05/04/19 05/04/19 Range/Units 09:05 09:05 09:05 WBC 6.10 (4.23-9.07) K/mm3 RBC 3.99 L (4.63-6.08) M/mm3 Hgb 12.1 L (13.7-17.5) gm/dl Hct 37.0 L (40.1-51.0) % MCV 92.7 H D (79.0-92.2) fl MCH 30.3 (25.7-32.2) pg MCHC 32.7 (32.2-35.5) g/dl RDW Std Deviation 45.5 H (35.1-43.9) fL Plt Count 249 (163-337) K/mm3 MPV 10.0 (9.4-12.3) fl Neut % (Auto) 71.1 H (34.0-67.9) % Lymph % (Auto) 18.5 L (21.8-53.1) % [place] % (Auto) 8.4 (5.3-12.2) % Eos % (Auto) 1.5 (0.8-7.0) Baso % (Auto) 0.3 (0.1-1.2) % Neut # (Auto) 4.34 (1.78-5.38) K/mm3 Lymph # (Auto) 1.13 L (1.32-3.57) K/mm3 [place] # (Auto) 0.51 (0.30-0.82) K/mm3 Eos # (Auto) 0.09 (0.04-0.54) K/mm3 Baso # (Auto) 0.02 (0.01-0.08) K/mm3 PT 10.4 (9.7-12.0) SECONDS INR 0.95 APTT 26 (22-31) SECONDS D-Dimer, Quantitative 0.58 H (0.19-0.50) mg/L Sodium 141 (136-145) mEq/L Potassium 4.1 (3.5-5.1) mEq/L Chloride 106 (98-107) mEq/L Carbon Dioxide 23 (21-32) mEq/L Anion Gap 16.1 H (5-15) BUN 17 (7-18) mg/dL Creatinine 1.7 H (0.7-1.3) mg/dL Est Cr Clr Drug Dosing 49.50 mL/min Estimated GFR (MDRD) 42 (>60) mL/min BUN/Creatinine Ratio 10.0 L (14-18) Glucose 113 H (74-106) mg/dL Calcium 9.4 (8.5-10.1) mg/dL Magnesium 2.2 (1.8-2.4) mg/dl Total Bilirubin 0.6 (0.2-1.0) mg/dL AST 18 (15-37) U/L ALT 20 (16-63) U/L Alkaline Phosphatase 65 (46-116) U/L Troponin I 0.026 (0.00-0.056) ng/mL C-Reactive Protein < 0.2 (<1.0) mg/dL NT-Pro-B Natriuret Pep (0-125) pg/mL Total Protein 7.2 (6.4-8.2) g/dl Albumin 3.8 (3.4-5.0) g/dl Globulin 3.4 gm/dL Albumin/Globulin Ratio 1.1 (1-2) Urine Color (Yellow) Urine Appearance (Clear) Urine pH (5.0-8.0) Ur Specific [place] (1.005-1.030) Urine Protein (Negative) Urine Glucose (UA) (Negative) Urine Ketones (Negative) Urine Occult Blood (Negative) Urine Nitrite (Negative) Urine Bilirubin (Negative) Urine Urobilinogen (0.2-1.0) Ur Leukocyte Esterase (Negative) Urine RBC (0-5) /hpf Urine WBC (0-5) /hpf Ur Squamous Epith Cells (0-5) /hpf Urine Bacteria (FEW) /hpf Urine Mucus (FEW) /hpf 05/04/19 05/04/19 Range/Units 09:05 09:47 WBC (4.23-9.07) K/mm3 RBC (4.63-6.08) M/mm3 Hgb (13.7-17.5) gm/dl Hct (40.1-51.0) % MCV (79.0-92.2) fl MCH (25.7-32.2) pg MCHC (32.2-35.5) g/dl RDW Std Deviation (35.1-43.9) fL Plt Count (163-337) K/mm3 MPV (9.4-12.3) fl Neut % (Auto) (34.0-67.9) % Lymph % (Auto) (21.8-53.1) % [place] % (Auto) (5.3-12.2) % Eos % (Auto) (0.8-7.0) Baso % (Auto) (0.1-1.2) % Neut # (Auto) (1.78-5.38) K/mm3 Lymph # (Auto) (1.32-3.57) K/mm3 [place] # (Auto) (0.30-0.82) K/mm3 Eos # (Auto) (0.04-0.54) K/mm3 Baso # (Auto) (0.01-0.08) K/mm3 PT (9.7-12.0) SECONDS INR APTT (22-31) SECONDS D-Dimer, Quantitative (0.19-0.50) mg/L Sodium (136-145) mEq/L Potassium (3.5-5.1) mEq/L Chloride (98-107) mEq/L Carbon Dioxide (21-32) mEq/L Anion Gap (5-15) BUN (7-18) mg/dL Creatinine (0.7-1.3) mg/dL Est Cr Clr Drug Dosing mL/min Estimated GFR (MDRD) (>60) mL/min BUN/Creatinine Ratio (14-18) Glucose (74-106) mg/dL Calcium (8.5-10.1) mg/dL Magnesium (1.8-2.4) mg/dl Total Bilirubin (0.2-1.0) mg/dL AST (15-37) U/L ALT (16-63) U/L Alkaline Phosphatase (46-116) U/L Troponin I (0.00-0.056) ng/mL C-Reactive Protein (<1.0) mg/dL NT-Pro-B Natriuret Pep 5669 H (0-125) pg/mL Total Protein (6.4-8.2) g/dl Albumin (3.4-5.0) g/dl Globulin gm/dL Albumin/Globulin Ratio (1-2) Urine Color Light yellow (Yellow) Urine Appearance Clear (Clear) Urine pH 6.5 (5.0-8.0) Ur Specific [place] 1.015 (1.005-1.030) Urine Protein Negative (Negative) Urine Glucose (UA) Negative (Negative) Urine Ketones Negative (Negative) Urine Occult Blood Negative (Negative) Urine Nitrite Negative (Negative) Urine Bilirubin Negative (Negative) Urine Urobilinogen 0.2 (0.2-1.0) Ur Leukocyte Esterase Negative (Negative) Urine RBC Not seen (0-5) /hpf Urine WBC Not seen (0-5) /hpf Ur Squamous Epith Cells Not seen (0-5) /hpf Urine Bacteria Rare (FEW) /hpf Urine Mucus Not seen (FEW) /hpf Meds: Medications Generic Name Dose Route Start Last Admin Trade Name Freq PRN Reason Stop Dose Admin Sodium Chloride 10 ml 05/04/19 09:13 05/04/19 09:26 Saline Flush FLUSH 10 ml ASDIRECTED PRN Administration Keep Vein Open Discontinued Medications Generic Name Dose Route Start Last Admin Trade Name Freq PRN Reason Stop Dose Admin Furosemide 40 mg 05/04/19 09:11 05/04/19 09:26 Lasix IVPUSH 05/04/19 09:12 40 mg NOW ONE Administration - Radiology Interpretation Free Text/Narrative:: 58-year-old male presents to the ED with paroxysmal nocturnal dyspnea wakening as early as 3:00 in the morning with shortness of breath over the last 3 days. States been gradually worsening over the last week. Today his developed a nonproductive cough. No associated fever or chills. Patient a myocardial infarction in the anterior septal wall in February of this year and [facility]. He was flown to [facility] for definitive cardiology assessment. They were able to put one stent in place. The rather complications and he was sent to [facility] for definitive management. His procedures were complicated by pulmonary emboli. And has had a history of congestive heart failure since time of infarct. Exam reveals crackles and some rhonchi left lung base as well as a few crackles right base. The DTRs not elevated. ECG confirms old anteroseptal myocardial infarction in the anterior septal wall. No signs of ischemia are evident. Clinically appears to of developed more heart failure. Plan saline lock. Lasix 40 mg IV. O2 at 2 L/m his O2 sat started to 91%. Chest x -ray to be done routine labs include BNP and cardiac markers and a d-dimer. - Re-Assessments/Exams Free Text/Narrative Re-Assessment/Exam: 05/04/19 10:02 chest x-ray reveals mild diffuse vascular congestion. Mild cardiomegaly. Tortuous thoracic aorta. Unchanged from previous chest x-ray. 05/04/19 11:13 Labs reveal a normal white count at 6.10. Auto differential is 71.1% neutrophils. Hemoglobin is 12.1 with hematocrit of 37.0. MCV is minimally elevated at 92.7. Platelet count 249,000. PT is 10.4 with an INR of 0.95. PTT is 26. D-dimer is minimally elevated at 0.58. Sodium is 141 with potassium of 4.1. Chloride is 106 with a bicarbonate of 23. And a gap is elevated at 16.1. BUN is 17 with a creatinine of 1.7. Estimated GFR is 42. Glucose is 113. Calcium is 9.4 with a magnesium of 2.2. Liver function is normal. Troponin I is less than 0.026. C-reactive protein less than 0.2 BNP is 5669. Total protein 7.2 with albumin fraction of 3.8. Urinalysis initially is normal. 05/04/19 11:30: Discussed the options with the patient and he prefers to try things at home versus coming into the hospital. I'm therefore going to increase his Lasix to 40 mg in the morning and 20 mg in the afternoon for the next 5 days and then have him be reevaluated by Fara Corcoran. I'm going to add Aldactone 25 mg in the morning and supper time to help the Lasix work better and also act as a potassium sparing diuretic. It also should help alleviate a good portion of his congestive failure. He will need his kidney function and potassium level checked in 4-5 days time. I will have him hold his serum potassium supplements which is 20 mg once daily until we know how the Aldactone is going to affect his kidneys. He estimates step on the scale daily and measure his weights. Really he needs to lose about 10 pounds in the next 10 days. He will have to stay on Lasix 40 mg every morning the question is whether or not he will need a dosage in the afternoon as well. I will also refill his inhaler brovana--15mcg -1 puff twice a day. Note I did not give him any increased Lasix tablets. I also only gave him 30 tablets of the Aldactone and therefore if it is working good in 15 days it can be refilled. He has a cardiology appointment on 22 May. Departure - Departure Time of Disposition: 11:27 Disposition: Home, Self-Care 01 Condition: Fair Clinical Impression: Acute exacerbation of congestive heart failure Qualifiers: Heart failure type: diastolic Qualified Code(s): I50.33 - Acute on chronic diastolic (congestive) heart failure Prescriptions: Arformoterol [Brovana] 1 puff INH BID #1 neb Spironolactone [Aldactone] 25 mg PO BID #30 tab Instructions: Heart Failure, [id number] Referrals: Angie Abrams PA-C [Primary Care Provider] - Forms: ED Department Discharge Additional Instructions: Evaluation the emergency room this morning in regards to gradually worsening shortness of breath over the weekend with minimal nonproductive cough. Chest x- ray reveals diffuse vascular congestion but no pleural effusions that would need to be drained. Heart is enlarged. Lab tests reveal an exacerbation of congestive heart failure with BNP of 5669. Normal should be about 150-200. As of this you need an increase amount of diuretics. You need to take Lasix 40 mg every morning with no medication Aldactone 25 mg which helps the Lasix work better. at approximately 3:00 in the afternoon needs take 20 mg of Lasix and Aldactone 25 mg at suppertime. Placed her potassium supplement on hold until after lab work is done on Saturday to see how your kidneys are doing with potassium sparing diuretic Aldactone. Total amylase you may need to have them reintroduced. Daily weights and write down the weight. And we hope that you can lose about 10 pounds over the next 10 days. The results of your blood tests that you require on Saturday will be sent to Fara Augustin please either arrange appointment to see her give her a call afternoon for the results and help determine any changes that need to be made. If you have lost a substantial amount of weight and then staying on Lasix 40 mg once in the morning may be suitable without a dosage requirement of Lasix in the afternoon. - My Orders Last 24 Hours: My Active Orders 05/04/19 09:12 EKG Documentation Completion [RC] STAT 05/04/19 09:13 Oxygen Therapy [RC] ASDIRECTED Sodium Chloride 0.9% [Saline Flush] 10 ml FLUSH ASDIRECTED PRN 05/04/19 09:14 Peripheral IV Care [RC] . DIRECTED Peripheral IV Insertion Adult [OM.PC] Stat - Assessment/Plan Last 24 Hours: My Active Orders 05/04/19 09:12 EKG Documentation Completion [RC] STAT 05/04/19 09:13 Oxygen Therapy [RC] ASDIRECTED Sodium Chloride 0.9% [Saline Flush] 10 ml FLUSH ASDIRECTED PRN 05/04/19 09:14 Peripheral IV Care [RC] . DIRECTED Peripheral IV Insertion Adult [OM.PC] Stat
--- NOTE | 2019-05-04 10:53 | CR ---
Chest: Portable view of the chest was obtained. Comparison: Prior chest x-ray of 04/07/19. Prior chest CT of 03/10/19 is also available. Emphysematous changes are present. Chronic increased lung markings are noted. No definite acute parenchymal change is seen. Bony structures are grossly intact. Heart does not appear enlarged for portable technique. Tortuous thoracic aorta is seen. Impression: 1. Findings believed to be chronic. Nothing acute is suspected. Diagnostic code #3
== END 2019-05-04 11:58 | disposition home or self-care (01) ==
LOC: JD.ED 08:49
DX: I50.31 Acute diastolic (congestive) heart failure (principal); I25.2 Old myocardial infarction; E78.00 Pure hypercholesterolemia, unspecified; K21.9 Gastro-esophageal reflux disease without esophagitis; F41.9 Anxiety disorder, unspecified; Z79.899 Other long term (current) drug therapy; Z79.02 Long term (current) use of antithrombotics/antiplatelets
CPT/HCPCS: 36415; 71045; 80053; 81001; 83735; 83880; 84484; 85025; 85379; 85610; 85730; 86140; 93005; 96374; 99285; J1940; 93010